=== PATIENT | female | born 1975 | race Caucasian/White ===

== ENCOUNTER 2019-09-15 14:42 | Observation (INO) ==
[2019-09-15] MEDS ORDERED: SODIUM CHLORIDE 0.9% 1000ML 1,000 ML IV SCH (14:45)
[2019-09-15] MEDS ORDERED: OPTIRAY 320 125ml IV PRN (14:50)
--- NOTE | 2019-09-15 14:55 | CT Scan Report ---
CT head/brain wo con CLINICAL HISTORY: 44 years-old Female presenting with Stroke evaluation, slurred speech. TECHNIQUE: Multidetector CT imaging of the head was performed without the use of intravenous contrast . IV contrast: None. One or more dose lowering techniques were used consistent with the principles of ALARA (as low as reasonably achievable), including automatic exposure control, mA or kV adjustment t o individual patient size, and/or use of iterative reconstruction. COMPARISON: None. CT DOSE (mGy.cm): The estimated cumulative dose is 773.57 mGy.cm. FINDINGS: Progressive Assembler And Fitter topogram: The patient is edentulous. Ventricles and sulci normal in size. No hemorrhage. Brain parenchyma normal in appearance with preser alberto san-white differentiation. No acute territorial infarct. No mass effect or midline shift. No ext ra-axial fluid collection. Paranasal sinuses and mastoid air cells clear. Calvarium intact. IMPRESSION: 1. No acute intracranial abnormality. Electronically signed by: Harley Diallo M.D. 09/15/2019 2:54 PM
--- NOTE | 2019-09-15 15:21 | CT Scan Report ---
CT angio head w con CLINICAL HISTORY: 44 years-old Female presenting with weakness, temporal pressure, neck pain. TECHNIQUE: Multidetector CT angiography of the head was performed after the administration of intrave nous contrast. 3-D volumetric and/or maximum intensity projection (MIP) images were subsequently amie nstructed for review. IV contrast: Optiray 320. One or more dose lowering techniques were used consis tent with the principles of ALARA (as low as reasonably achievable), including automatic exposure con trol, mA or kV adjustment to individual patient size, and/or use of iterative reconstruction. COMPARISON: None. CT DOSE (mGy.cm): The estimated cumulative dose is 903.93. FINDINGS: Tow Motor Driver topogram: Unremarkable. Anterior circulation: Atherosclerosis of the cavernous segments of the internal carotid arteries. Int racranial portions of the internal carotid arteries patent to the level of the termini. Anterior cere bral arteries patent. Middle cerebral arteries patent. Anterior communicating artery patent. Posterior circulation: Left dominant vertebral artery. Intradural portions of the vertebral arteries patent. Posterior inferior cerebellar arteries patent. Basilar artery patent. Anterior inferior cereb ellar arteries poorly visualized. Superior cerebellar arteries patent. Posterior cerebral arteries pa tent. Posterior communicating arteries patent. Dural venous sinuses: Patent. Other: Allowing for the phase of contrast, brain parenchyma within normal limits. Calvarium intact. IMPRESSION: 1. No evidence of aneurysm, focal vessel occlusion, or significant stenosis of the intracranial ambrocio audrey. Electronically signed by: Harley Diallo M.D. 09/15/2019 3:20 PM
--- NOTE | 2019-09-15 15:26 | CT Scan Report ---
CT angio neck with con CLINICAL HISTORY: 44 years-old Female presenting with weakness. TECHNIQUE: Multidetector CT angiography of the neck was performed after the administration of intrave nous contrast. 3-D volumetric and/or maximum intensity projection (MIP) images were subsequently amie nstructed for review. IV contrast: Optiray 320. One or more dose lowering techniques were used consis tent with the principles of ALARA (as low as reasonably achievable), including automatic exposure con trol, mA or kV adjustment to individual patient size, and/or use of iterative reconstruction. Stenosi s measurements were based on NASCET-like criteria (distal lumen diameter as the denominator for steno sis measurement). COMPARISON: None. CT DOSE (mGy.cm): The estimated cumulative dose is 903.93 mGy.cm. FINDINGS: Staff Rn topogram: Unremarkable. Image quality is degraded by patient body habitus, which moderately limits diagnostic sensitivity the exam. Aortic arch: Normal three-vessel aortic arch with patent origins of the branch vessels. Innominate artery: Patent. Right subclavian artery: Patent. Right common carotid artery: Patent. Right internal and external carotid arteries: Right carotid bifurcation patent. Right internal and ex ternal carotid arteries widely patent. Left common carotid artery: Patent. Left internal and external carotid arteries: Left carotid bifurcation patent. Left internal and exter nal carotid arteries widely patent. Left subclavian artery: Patent. Vertebral arteries: Left dominant vertebral artery. Origins and courses of the bilateral vertebral ar teries patent. Other: Limited intracranial evaluation within normal limits. Soft tissues of the neck normal allowing for the phase of contrast. Normal cervical spine. Lung apices clear. IMPRESSION: Image quality is degraded by patient body habitus, which moderately limits diagnostic sensitivity the exam. 1. No gross evidence of dissection, focal vessel occlusion, or significant stenosis of the cervical arteries. Electronically signed by: Harley Diallo M.D. 09/15/2019 3:25 PM
--- NOTE | 2019-09-15 15:27 | XRay Report ---
XR chest 1V portable CLINICAL HISTORY: 44 years-old Female presenting with CVA. TECHNIQUE: Portable upright AP view of the chest was obtained. COMPARISON: None. FINDINGS: Apparent cardiac silhouette enlargement likely due to body habitus and AP technique. Pulmonary vascul ar prominence. No focal opacity. No large effusion or pneumothorax. Osseous structures normal. Upper abdomen normal. IMPRESSION: 1. Volume overload may be present. Evaluation degraded by body habitus. No other convincing evidence of acute cardiopulmonary disease. Electronically signed by: Harley Diallo M.D. 09/15/2019 3:26 PM
[2019-09-15 15:28] LABS: Basophils # (auto) 0.03 K/uL (0-0.2); Basophils % (auto) 0.3 %; Eosinophils # (auto) 0.12 K/uL (0-0.5); Eosinophils % (auto) 1.4 %; Hematocrit (blood only) 35.3 % (37-47); Hemoglobin 11.6 g/dL (12.0-16.0); Immature Granulocytes # (auto) 0.03 K/uL (0.00-0.02); Immature Granulocytes % (auto) 0.3 %; Lymphocytes # (auto) 1.82 K/uL (1.2-3.4); Lymphocytes % (auto) 20.9 %; Mean Corpuscular Hemoglobin 27.5 pg (25-34); Mean Corpuscular Hgb Conc 32.9 g/dL (32-36); Mean Corpuscular Volume 83.6 fL (80-100); Mean Platelet Volume 9.3 fL (7.4-10.4); Monocytes # (auto) 0.66 K/uL (0.11-0.59); Monocytes % (auto) 7.6 %; Neutrophils # (auto) 6.04 K/uL (1.4-6.5); Neutrophils % (auto) 69.5 %; Platelet Count 183 K/uL (130-400); RDW Standard Deviation 48.6 fL (36.4-46.3); Red Blood Count 4.22 M/uL (4.2-5.4)
[2019-09-15 15:39] LABS: Partial Thromboplastin Ratio 1.1; Partial Thromboplastin Time 30.9 Seconds (21.0-31.0); Prothrombin Time 10.6 Seconds (9.0-12.0)
--- NOTE | 2019-09-15 15:40 | Emergency Department Note ---
Entered by Nieves Stephens acting as a scribe for History of Present Illness General Chief complaint: Stroke Alert Source: patient History of Present Illness Provider complaint: stroke symptoms Onset (ago): minute(s) 30 Location: head Radiation: non-radiation Pain Consistency: + constant Quality: + other (numbness and weakness) Associated symptoms: + denies other symptoms The patient is a 44 y/o female who presents to the emergency department for evaluation of stroke like symptoms that began prior to arrival. The EMS notes t he patient was getting an iron infusion at the [facility] in [facility] when she began having left sided numbness and weakness as well as slurred speech which the staff noticed. EMS states that the patient has a history of HTN, anemia and a stroke one month ago at [place] that was milder than the current symptoms. They report that the RACE scale was 1 for the patient. Last known well was 1410. She notes that she had some facial droop following the prior stroke. The patient denies any other symptoms Home Medications Home Medications Medication Instructions Recorded Confirmed Type Iron-Vitamin C 65/125mg 1 tab PO BID 09/15/19 09/15/19 History albuterol sulfate 2.5 mg INHALATION Q4 PRN 09/15/19 09/15/19 History albuterol sulfate [Ventolin HFA] 2 puff INHALATION Q4 PRN 09/15/19 09/15/19 History aspirin [Aspir-81] 81 mg PO DAILY 09/15/19 09/15/19 History atenolol 50 mg PO HS 09/15/19 09/15/19 History baclofen 10 mg PO TID PRN 09/15/19 09/15/19 History benzonatate 100 mg PO TID PRN 09/15/19 09/15/19 History cetirizine 10 mg PO DAILY PRN 09/15/19 09/15/19 History clopidogrel [Plavix] 75 mg PO DAILY 09/15/19 09/15/19 History diclofenac sodium 50 mg PO BID PRN 09/15/19 09/15/19 History diclofenac sodium [Voltaren] 0 g TOPICAL Q6 PRN 09/15/19 09/15/19 History dicyclomine 10 mg PO TID PRN 09/15/19 09/15/19 History fluticasone propionate [Flonase 2 spray INTRANASAL BID 09/15/19 09/15/19 History Allergy Relief] gabapentin [Neurontin] 300 mg PO QID 09/15/19 09/15/19 History hydroxyzine HCl 30 - 40 mg PO HS PRN 09/15/19 09/15/19 History lisinopril 10 mg PO DAILY 09/15/19 09/15/19 History magnesium oxide [MagOx] 400 mg PO DAILY 09/15/19 09/15/19 History melatonin 3 mg PO HS PRN 09/15/19 09/15/19 History methocarbamol 500 mg PO TID PRN 09/15/19 09/15/19 History naproxen 375 mg PO BID 09/15/19 09/15/19 History omega-3 acid ethyl esters 1 cap PO BID 09/15/19 09/15/19 History omeprazole 20 mg PO BID 09/15/19 09/15/19 History ondansetron HCl [Zofran] 4 mg PO TID PRN 09/15/19 09/15/19 History ranitidine HCl [Zantac] 150 mg PO BID 09/15/19 09/15/19 History risperidone 2 mg PO BID 09/15/19 09/15/19 History senna 8.6 mg PO BID PRN 09/15/19 09/15/19 History sertraline 100 mg PO DAILY 09/15/19 09/15/19 History sucralfate [Carafate] 1 g PO ACHS 09/15/19 09/15/19 History topiramate [Topamax] 50 mg PO BID 09/15/19 09/15/19 History trazodone 375 mg PO HS 09/15/19 09/15/19 History Allergies Allergy/AdvReac Type Severity Reaction Status Date / Time aspirin Allergy Hives Verified 09/15/19 16:25 codeine Allergy Hives Verified 09/15/19 16:25 ketorolac [From Toradol] Allergy Hives Verified 09/15/19 16:24 latex Allergy Hives Verified 09/15/19 16:25 Penicillins Allergy Hives Verified 09/15/19 16:24 promethazine [From Phenergan] Allergy Hives Verified 09/15/19 16:24 tramadol Allergy Hives Verified 09/15/19 16:24 Past Med/Surg History Medical History (Updated 09/15/19 @ 16:26 by Richmond Cueva MD) Anemia Bipolar depression Gastritis GI bleed History of CVA (cerebrovascular accident) Hypertension Morbid obesity Stroke Surgical History No pertinent past surgical history Family History (Updated 09/15/19 @ 16:19 by Richmond Cueva MD) Mother Stroke Social History (Updated 09/15/19 @ 16:18 by Richmond Cueva MD) Preferred Language: Cameroonian Communication Ability: Effective Safety Consultant Required: No Beliefs That Will Affect Care: None Current Living Situation: Family Current Living Situation Comment: with sister Other Information That Helps Us Care for You: No Feels Safe at Home: Yes Safety Concerns: Feels Safe At This Time Smoking Status: Former smoker Hx Alcohol Use: No Hx Substance Use: No Review of Systems See HPI for pertinent positives & negatives. and A total of 10 systems reviewed and were otherwise negative Physical Exam Vital Signs Vital Signs - 24 hr 09/15/19 14:30 09/15/19 14:34 09/15/19 15:45 Temperature 37 C 37 C 37.0 C Temperature Source Oral Oral Pulse Rate 88 Pulse Rate [Right Finger] 80 80 Pulse Rate from SpO2 Sensor 75 Respiratory Rate 20 20 20 Respiratory Effort / Characteristics Non-Labored Spontaneous Non-Labored Spontaneous Blood Pressure 143/77 H 105/72 Blood Pressure [Left Arm] 128/75 128/75 Blood Pressure Mean 99 83 Blood Pressure Mean [Left Arm] 92 92 Blood Pressure Position Lying Blood Pressure Position [Left Arm] Sitting Sitting Pulse Oximetry 100 100 100 Oxygen Delivery Method Room Air Room Air Room Air Sepsis Recent Fever Within 48 Hours No Sepsis Action Taken by Nursing No Action Required 09/15/19 15:47 Temperature Temperature Source Pulse Rate Pulse Rate [Right Finger] Pulse Rate from SpO2 Sensor 97 H Respiratory Rate 20 Respiratory Effort / Characteristics Blood Pressure 105/72 Blood Pressure [Left Arm] Blood Pressure Mean 76 Blood Pressure Mean [Left Arm] Blood Pressure Position Blood Pressure Position [Left Arm] Pulse Oximetry 98 Oxygen Delivery Method Room Air Sepsis Recent Fever Within 48 Hours Sepsis Action Taken by Nursing GENERAL: Patient is awake alert in no acute distress patient is resting comfortably and showing no signs of anxiety EYES: The conjunctivae are clear. The pupils are round and reactive. EARS, NOSE, MOUTH AND THROAT: The nose is without any evidence of any deformity. Mucous membranes are moist tongue is midline NECK: The neck is nontender and supple. RESPIRATORY: Normal respiratory effort is noted there is no evidence of wheezing rhonchi or rales CARDIOVASCULAR: Regular rate and rhythm noted there no murmurs rubs or gallops normal S1 normal S2 GASTROINTESTINAL: The abdomen is soft. Bowel sounds are present in all quadrants. Abdomen is nontender MUSCULOSKELETAL/EXTREMITIES: There is no evidence of gross deformity full range of motion is noted in the hips and shoulders SKIN: There is no obvious evidence of any rash. Pedal edema was noted bilaterally. NEUROLOGIC: Patient is awake alert and oriented x3. There is a left facial droop noted with forehead sparing. [employer] strength is diminished in the left hand compared to the right. There is no drift in the upper extremity's. Patient is unable to hold the left leg off the bed for greater than 5 seconds. Course Course 1442: Past medical records reviewed. The patient was evaluated in room B01. A complete history and physical exam was performed. 1500: I spoke to Dr. Rosalinda Wheatley. 1540: [facility] Who will evaluate for further management. Administered Medications Sodium Chloride (Nss 1000ml) 1,000 mls @ 60 mls/hr IV .[id number] MARYBEL Stop: 10/15/19 17:59 Last Admin: 09/15/19 17:40 Dose: 60 mls/hr Documented by: [id number] Discontinued Medications Sodium Chloride (Nss 1000ml) 1,000 mls @ 50 mls/hr IV .Q20H MARYBEL Stop: 10/15/19 14:44 Last Infusion: 09/15/19 17:25 Dose: 0 mls/hr Documented by: [id number] Admin: 09/15/19 15:39 Dose: 50 mls/hr Documented by: [id number] Ioversol (Optiray 320 125ml) 108 ml IV ONCE PRN PRN Reason: Interaction Checking Stop: 09/19/19 14:49 Last Admin: 09/15/19 14:51 Dose: 108 ml Documented by: [id number] Critical Care Time Critical Care Time: Yes Total Critical Care Time: 60 I have personally spent 60 minutes of critical care time in the direct management of this patient. This includes bedside care, interpretation of diagnostic studies, and testing, discussion with consultants, patient, and family members, and other required patient management activities. This 60 minutes is in excess of all separately billable procedures. Medical Decision Making Differential Diagnosis Differential includes acute coronary syndrome, myocardial infarction, CVA, TIA, anemia, infection, pneumonia, UTI, pyelonephritis, poor nutrition, dehydration, electrolyte disturbance,hypoglycemia. Medical Records Attestation: I reviewed the patient's medical records. Home Medications Current Medication List: was personally reviewed by me Laboratory Data Attestation: I reviewed the patient's lab results. Result diagrams: 09/15/19 15:11 09/15/19 15:11 Lab Results 09/15/19 09/15/19 09/15/19 Range/Units 15:11 15:11 15:11 WBC 8.70 (4.8-10.8) K/uL RBC 4.22 (4.2-5.4) M/uL Hgb 11.6 L (12.0-16.0) g/dL Hct 35.3 L (37-47) % MCV 83.6 (80-100) fL MCH 27.5 (25-34) pg MCHC 32.9 (32-36) g/dL RDW Std Deviation 48.6 H (36.4-46.3) fL RDW Coeff of Sylvia 16.0 H (11.5-14.5) % Plt Count 183 (130-400) K/uL MPV 9.3 (7.4-10.4) fL Immature Gran % (Auto) 0.3 % Neut % (Auto) 69.5 % Lymph % (Auto) 20.9 % Dickinson % (Auto) 7.6 % Eos % (Auto) 1.4 % Baso % (Auto) 0.3 % Immature Gran # (Auto) 0.03 H (0.00-0.02) K/uL Neut # (Auto) 6.04 (1.4-6.5) K/uL Lymph # (Auto) 1.82 (1.2-3.4) K/uL Dickinson # (Auto) 0.66 H (0.11-0.59) K/uL Eos # (Auto) 0.12 (0-0.5) K/uL Baso # (Auto) 0.03 (0-0.2) K/uL PT 10.6 (9.0-12.0) Seconds INR 1.0 (0.9-1.1) APTT 30.9 (21.0-31.0) Seconds PTT Ratio 1.1 Sodium 137 (136-145) mmol/L Potassium 3.9 (3.5-5.1) mmol/L Chloride 108 H (98-107) mmol/L Carbon Dioxide 22 (21-32) mmol/L Anion Gap 7.0 (3-11) BUN 12 (7-18) mg/dl Creatinine 0.88 (0.6-1.2) mg/dl Est Cr Clr Drug Dosing 151.1 ml/min Est GFR ( Amer) 93.3 Est GFR (Non-Af Amer) 80.5 BUN/Creatinine Ratio 13.8 (10-20) Glucose 95 (70-99) mg/dl POC Glucose (70-99) Calcium 8.4 L (8.5-10.1) mg/dl Magnesium 2.0 (1.8-2.4) mg/dl Total Bilirubin 0.3 (0.2-1) mg/dl AST 7 L (15-37) U/L ALT 11 L (12-78) U/L Alkaline Phosphatase 88 (45-117) U/L Troponin I < 0.015 (0-0.045) ng/ml Total Protein 6.8 (6.4-8.2) gm/dl Albumin 2.9 L (3.4-5.0) gm/dl Globulin 3.9 (2.5-4.0) gm/dl Albumin/Globulin Ratio 0.7 L (0.9-2) HCG, Qual (Negative) Blood Type Antibody Screen 09/15/19 09/15/19 09/15/19 Range/Units 15:11 15:17 15:24 WBC (4.8-10.8) K/uL RBC (4.2-5.4) M/uL Hgb (12.0-16.0) g/dL Hct (37-47) % MCV (80-100) fL MCH (25-34) pg MCHC (32-36) g/dL RDW Std Deviation (36.4-46.3) fL RDW Coeff of Sylvia (11.5-14.5) % Plt Count (130-400) K/uL MPV (7.4-10.4) fL Immature Gran % (Auto) % Neut % (Auto) % Lymph % (Auto) % Dickinson % (Auto) % Eos % (Auto) % Baso % (Auto) % Immature Gran # (Auto) (0.00-0.02) K/uL Neut # (Auto) (1.4-6.5) K/uL Lymph # (Auto) (1.2-3.4) K/uL Dickinson # (Auto) (0.11-0.59) K/uL Eos # (Auto) (0-0.5) K/uL Baso # (Auto) (0-0.2) K/uL PT (9.0-12.0) Seconds INR (0.9-1.1) APTT (21.0-31.0) Seconds PTT Ratio Sodium (136-145) mmol/L Potassium (3.5-5.1) mmol/L Chloride (98-107) mmol/L Carbon Dioxide (21-32) mmol/L Anion Gap (3-11) BUN (7-18) mg/dl Creatinine (0.6-1.2) mg/dl Est Cr Clr Drug Dosing ml/min Est GFR ( Amer) Est GFR (Non-Af Amer) BUN/Creatinine Ratio (10-20) Glucose (70-99) mg/dl POC Glucose 85 (70-99) Calcium (8.5-10.1) mg/dl Magnesium (1.8-2.4) mg/dl Total Bilirubin (0.2-1) mg/dl AST (15-37) U/L ALT (12-78) U/L Alkaline Phosphatase (45-117) U/L Troponin I (0-0.045) ng/ml Total Protein (6.4-8.2) gm/dl Albumin (3.4-5.0) gm/dl Globulin (2.5-4.0) gm/dl Albumin/Globulin Ratio (0.9-2) HCG, Qual Negative (Negative) Blood Type O Positive Antibody Screen NEGATIVE Imaging Data Radiologist's Impression: Radiology results as stated below per my review and the radiologist's interpretation: CT head/brain wo con CLINICAL HISTORY: 44 years-old Female presenting with Stroke evaluation, slurred speech. TECHNIQUE: Multidetector CT imaging of the head was performed without the use of intravenous contrast. IV contrast: None. One or more dose lowering techniques were used consistent with the principles of ALARA (as low as reasonably achievable), including automatic exposure control, mA or kV adjustment to individual patient size, and/or use of iterative reconstruction. COMPARISON: None. CT DOSE (mGy.cm): The estimated cumulative dose is 773.57 mGy.cm. FINDINGS: Tests Superintendent topogram: The patient is edentulous. Ventricles and sulci normal in size. No hemorrhage. Brain parenchyma normal in appearance with preserved san-white differentiation. No acute territorial infarct. No mass effect or midline shift. No extra-axial fluid collection. Paranasal sinuses and mastoid air cells clear. Calvarium intact. IMPRESSION: 1. No acute intracranial abnormality. Electronically signed by: Harley Diallo M.D. 09/15/2019 2:54 PM XR chest 1V portable CLINICAL HISTORY: 44 years-old Female presenting with CVA. TECHNIQUE: Portable upright AP view of the chest was obtained. COMPARISON: None. FINDINGS: Apparent cardiac silhouette enlargement likely due to body habitus and AP technique. Pulmonary vascular prominence. No focal opacity. No large effusion or pneumothorax. Osseous structures normal. Upper abdomen normal. IMPRESSION: 1. Volume overload may be present. Evaluation degraded by body habitus. No other convincing evidence of acute cardiopulmonary disease. Electronically signed by: Harley Diallo M.D. 09/15/2019 3:[address] angio head w con CLINICAL HISTORY: 44 years-old Female presenting with weakness, temporal pressure, neck pain. TECHNIQUE: Multidetector CT angiography of the head was performed after the administration of intravenous contrast. 3-D volumetric and/or maximum intensity projection (MIP) images were subsequently reconstructed for review. IV contrast: Optiray 320. One or more dose lowering techniques were used consistent with the principles of ALARA (as low as reasonably achievable), including automatic exposure control, mA or kV adjustment to individual patient size, and/or use of iterative reconstruction. COMPARISON: None. CT DOSE (mGy.cm): The estimated cumulative dose is 903.93. FINDINGS: Tests Superintendent topogram: Unremarkable. Anterior circulation: Atherosclerosis of the cavernous segments of the internal carotid arteries. Intracranial portions of the internal carotid arteries patent to the level of the termini. Anterior cerebral arteries patent. Middle cerebral arteries patent. Anterior communicating artery patent. Posterior circulation: Left dominant vertebral artery. Intradural portions of the vertebral arteries patent. Posterior inferior cerebellar arteries patent. Basilar artery patent. Anterior inferior cerebellar arteries poorly visualized. Superior cerebellar arteries patent. Posterior cerebral arteries patent. Posterior communicating arteries patent. Dural venous sinuses: Patent. Other: Allowing for the phase of contrast, brain parenchyma within normal limits. Calvarium intact. IMPRESSION: 1. No evidence of aneurysm, focal vessel occlusion, or significant stenosis of the intracranial arteries. Electronically signed by: Harley Diallo M.D. 09/15/2019 3:[address] angio neck with con CLINICAL HISTORY: 44 years-old Female presenting with weakness. TECHNIQUE: Multidetector CT angiography of the neck was performed after the administration of intravenous contrast. 3-D volumetric and/or maximum intensity projection (MIP) images were subsequently reconstructed for review. IV contrast: Optiray 320. One or more dose lowering techniques were used consistent with the principles of ALARA (as low as reasonably achievable), including automatic exposure control, mA or kV adjustment to individual patient size, and/or use of iterative reconstruction. Stenosis measurements were based on NASCET-like criteria (distal lumen diameter as the denominator for stenosis measurement). COMPARISON: None. CT DOSE (mGy.cm): The estimated cumulative dose is 903.93 mGy.cm. FINDINGS: Tests Superintendent topogram: Unremarkable. Image quality is degraded by patient body habitus, which moderately limits diagnostic sensitivity the exam. Aortic arch: Normal three-vessel aortic arch with patent origins of the branch vessels. Innominate artery: Patent. Right subclavian artery: Patent. Right common carotid artery: Patent. Right internal and external carotid arteries: Right carotid bifurcation patent. Right internal and external carotid arteries widely patent. Left common carotid artery: Patent. Left internal and external carotid arteries: Left carotid bifurcation patent. Left internal and external carotid arteries widely patent. Left subclavian artery: Patent. Vertebral arteries: Left dominant vertebral artery. Origins and courses of the bilateral vertebral arteries patent. Other: Limited intracranial evaluation within normal limits. Soft tissues of the neck normal allowing for the phase of contrast. Normal cervical spine. Lung apices clear. IMPRESSION: Image quality is degraded by patient body habitus, which moderately limits diagnostic sensitivity the exam. 1. No gross evidence of dissection, focal vessel occlusion, or significant stenosis of the cervical arteries. Electronically signed by: Harley Diallo M.D. 09/15/2019 3:25 PM ECG Data Attestation: I personally reviewed and interpreted this ECG as follows: Indication: + weakness Rate (beats per minute): 83 Rhythm: + normal sinus ECG ST segments: no ST depression and no ST elevation ECG Findings: no PACs and no PVCs Comparison ECG Date: no prior available Blood Pressure Blood Pressure Findings: Normal blood pressure MDM Narrative The patient is a 44-year-old female who presented to the emergency department for an evaluation of left-sided weakness. The patient has a history of a recent stroke 1 month ago. The patient states she was treated at [facility] for a recent stroke. Patient denies that she had TPA at that time. She also states that they did not find the cause of her stroke. Old records are still pending at this time. The patient was made a stroke alert prior to arrival. I discussed her case with the [facility] stroke neurolog ist. The patient was evaluated by the stroke neurologist. It appears the patient had some facial droop after the stroke but the left-sided weakness appears to be new. I discussed the patient's laboratory and radiographic studies with her. No acute findings were noted on CT the head and her CT an giography appears normal. There does not appear to be any reason for transfer at this time and the patient would not be a candidate for TPA given her recent stroke only a month ago. I discussed this case with the [facility] hospital[facility] group. They have agreed to evaluate the patient in the emergency department for further management disposition. The patient was agreeable to evaluation by the hospitalist. Impression & Plan Weakness, Acute CVA (cerebrovascular accident) Discharge Plan Visit Data *Final* Discharge Date/Time: 09/15/19 16:59 Chief Complaint: Stroke Alert ED Provider: Rojelio Valerio Discharge Problem: Weakness, Acute CVA (cerebrovascular accident) Patient Disposition: Admitted As Inpatient Discharge Instructions Interventions: ED Discharge Assessment Last Done: 09/15/19 16:59 The scribe's documentation has been prepared under my direction and personally reviewed by me in its entirety. I confirm that the note above accurately reflects all work, treatment, procedures, and medical decision making performed by me.
[2019-09-15 15:43] LABS: Pregnancy Test, Serum Negative (Negative)
[2019-09-15 15:44] LABS: Alanine Aminotransferase 11 U/L (12-78); Albumin Level 2.9 gm/dl (3.4-5.0); Aspartate Aminotransferase 7 U/L (15-37); BUN Creatinine Ratio 13.8 (10-20); Blood Urea Nitrogen 12 mg/dl (7-18); Calcium 8.4 mg/dl (8.5-10.1); Carbon Dioxide 22 mmol/L (21-32); Chloride 108 mmol/L (98-107); Creatinine Clr Calc Pharmacy 151.1 ml/min; Est GFR (African American) 93.3; Est GFR (Non-African American) 80.5; Glucose 95 mg/dl (70-99); Potassium 3.9 mmol/L (3.5-5.1); Sodium 137 mmol/L (136-145)
[2019-09-15 15:49] LABS: Albumin Globulin Ratio 0.7 (0.9-2); Alkaline Phosphatase 88 U/L (45-117); Bilirubin,Total 0.3 mg/dl (0.2-1); Globulin 3.9 gm/dl (2.5-4.0); Total Protein 6.8 gm/dl (6.4-8.2); Troponin I < 0.015 ng/ml (0-0.045)
--- NOTE | 2019-09-15 15:52 | History & Physical Report ---
Date of Service September 15, 2019 Assessment & Plan (1) TIA (transient ischemic attack): Follow TIA protocol; her symptoms have started to improve. She has history of CVA 1 month back, we will try to get records from previous hospitalization. Consult neurology. Further plan per neurology. Neurochecks per protocol. Consult PT OT. Consult speech therapy. Swallowing evaluation. Case management for discharge plans. Present on Admission?: Yes (2) GERD (gastroesophageal reflux disease): Continue home medication. Present on Admission?: Yes (3) Bipolar depression: Continue home medications. Present on Admission?: Yes (4) Hypertension: Continue with home medications. Present on Admission?: Yes (5) Anemia: Patient was receiving IV iron today at [facility] Hematology is following. Present on Admission?: Yes (6) Morbid obesity: Add subcu heparin for DVT prophylaxis. Present on Admission?: Yes (7) History of CVA (cerebrovascular accident): Get old records from previous hospitalization. Present on Admission?: Yes (8) Weakness: Consult PT OT. Present on Admission?: Yes (9) DVT prophylaxis: Add subcu heparin for DVT prophylaxis. History of Present Illness Chief Complaint: Left-sided tingling numbness and weakness Primary Care Provider: Eulalio Barry The patient is a 44 y/o female who presents to the emergency department for evaluation of stroke like symptoms that began prior to arrival. The EMS notes the patient was getting an iron infusion at the [facility] center in [facility] when she began having left sided numbness and weakness as well as slurred speech which the staff noticed. EMS states that the patient has a history of HTN, anemia and a stroke one month ago at [facility] that was milder than the current symptoms. They report that the RACE scale was 1 for the patient. Last known well was 1410. She notes that she had some facial droop following the prior stroke. The patient denies any other symptoms. Symptoms have started to improve. The CT head and CT angiogram is within normal limits. She will be admitted under observation to rule out TIA. Allergies Allergy/AdvReac Type Severity Reaction Status Date / Time aspirin Allergy Hives Verified 09/15/19 16:25 codeine Allergy Hives Verified 09/15/19 16:25 ketorolac [From Toradol] Allergy Hives Verified 09/15/19 16:24 latex Allergy Hives Verified 09/15/19 16:25 Penicillins Allergy Hives Verified 09/15/19 16:24 promethazine [From Phenergan] Allergy Hives Verified 09/15/19 16:24 tramadol Allergy Hives Verified 09/15/19 16:24 Past Med/Surg History Medical History (Updated 09/15/19 @ 16:26 by Richmond Cueva MD) Anemia Bipolar depression Gastritis GI bleed History of CVA (cerebrovascular accident) Hypertension Morbid obesity Stroke Surgical History No pertinent past surgical history Family History (Updated 09/15/19 @ 16:19 by Richmond Cueva MD) Mother Stroke Social History (Updated 09/15/19 @ 16:18 by Richmond Cueva MD) Preferred Language: Cambodian Smoking Status: Never smoker Hx Substance Use: No Review of Systems Review of Systems: All systems reviewed & are unremarkable except as noted in HPI & below Psychiatric: + depression and + anxiety Physical Exam Physical Exam: GENERAL : No acute distress Morbidly obese female EYES: No icterus, gaze conjugate NOSE: No evidence of epistaxis MOUTH: No lesions or candidiasis, mucosa moist NECK: Supple LUNGS: CTA B/L, no wheezes, rales or rhonchi HEART: Regular, rate controlled ABDOMEN: Soft, NT, ND, BS Present EXTREMITIES: No LE edema, pedal pulses intact NEURO: A&OX3 Neurologic: CN's II-XI intact bilaterally and awake Cranial Nerves: sense of smell intact, PERRL, normal accommodation, EOM intact bilaterally, normal facial strength, tongue midline, normal gag reflex, normal hearing, able to rotate head bilaterally, able to elevate shoulders bilaterally, no nystagmus and symmetric palate elevation Results & Data Vital Signs (Past 12 Hours) Vital Signs Temp Pulse Pulse Resp BP BP Pulse Ox 09/15/19 15:45 98.6 F 20 105/72 100 09/15/19 14:34 98.6 F 80 20 128/75 100 09/15/19 14:30 98.6 F 88 80 20 143/77 H 128/75 100 Laboratory Results 09/15/19 15:11 09/15/19 15:[address] angio head w con CLINICAL HISTORY: 44 years-old Female presenting with weakness, temporal pressure, neck pain. TECHNIQUE: Multidetector CT angiography of the head was performed after the administration of intravenous contrast. 3-D volumetric and/or maximum intensity projection (MIP) images were subsequently reconstructed for review. IV contrast: Optiray 320. One or more dose lowering techniques were used consistent with the principles of ALARA (as low as reasonably achievable), including automatic exposure control, mA or kV adjustment to individual patient size, and/or use of iterative reconstruction. COMPARISON: None. CT DOSE (mGy.cm): The estimated cumulative dose is 903.93. FINDINGS: Stone Rougher topogram: Unremarkable. Anterior circulation: Atherosclerosis of the cavernous segments of the internal carotid arteries. Intracranial portions of the internal carotid arteries patent to the level of the termini. Anterior cerebral arteries patent. Middle cerebral arteries patent. Anterior communicating artery patent. Posterior circulation: Left dominant vertebral artery. Intradural portions of the vertebral arteries patent. Posterior inferior cerebellar arteries patent. Basilar artery patent. Anterior inferior cerebellar arteries poorly visualized. Superior cerebellar arteries patent. Posterior cerebral arteries patent. Posterior communicating arteries patent. Dural venous sinuses: Patent. Other: Allowing for the phase of contrast, brain parenchyma within normal limits. Calvarium intact. IMPRESSION: 1. No evidence of aneurysm, focal vessel occlusion, or significant stenosis of the intracranial arteries. CT head/brain wo con CLINICAL HISTORY: 44 years-old Female presenting with Stroke evaluation, slurred speech. TECHNIQUE: Multidetector CT imaging of the head was performed without the use of intravenous contrast. IV contrast: None. One or more dose lowering techniques were used consistent with the principles of ALARA (as low as reasonably achievable), including automatic exposure control, mA or kV adjustment to individual patient size, and/or use of iterative reconstruction. COMPARISON: None. CT DOSE (mGy.cm): The estimated cumulative dose is 773.57 mGy.cm. FINDINGS: Stone Rougher topogram: The patient is edentulous. Ventricles and sulci normal in size. No hemorrhage. Brain parenchyma normal in appearance with preserved san-white differentiation. No acute territorial infarct. No mass effect or midline shift. No extra-axial fluid collection. Paranasal sinuses and mastoid air cells clear. Calvarium intact. IMPRESSION: 1. No acute intracranial abnormality. Code Status & VTE Plan Code Status full code PG Care Time/CCT Total # of Minutes Spent Total Time Spent with Patient: Total time spent is greater than 50% in coordination of care (as documented) at patient's floor/unit and/or counseling patient:
[2019-09-15] MEDS ORDERED: PHARMACIST DISCHARGE MED REC CONSULT PRN (17:24)
[2019-09-15] MEDS: SODIUM CHLORIDE 0.9% 1000ML 1,000 ML IV SCH (17:40)
[2019-09-15] MEDS: HEPARIN SOD 5,000 UNIT/0.5 ML VIAL SQ SCH (21:40)
[2019-09-16] MEDS: HEPARIN SOD 5,000 UNIT/0.5 ML VIAL SQ SCH ×2 (05:41→13:01)
[2019-09-16 06:37] LABS: Basophils # (auto) 0.01 K/uL (0-0.2); Basophils % (auto) 0.1 %; Eosinophils # (auto) 0.12 K/uL (0-0.5); Eosinophils % (auto) 1.7 %; Hematocrit (blood only) 35.4 % (37-47); Hemoglobin 11.9 g/dL (12.0-16.0); Immature Granulocytes # (auto) 0.03 K/uL (0.00-0.02); Immature Granulocytes % (auto) 0.4 %; Lymphocytes # (auto) 1.94 K/uL (1.2-3.4); Lymphocytes % (auto) 27.2 %; Mean Corpuscular Hemoglobin 27.9 pg (25-34); Mean Corpuscular Hgb Conc 33.6 g/dL (32-36); Mean Corpuscular Volume 82.9 fL (80-100); Mean Platelet Volume 9.1 fL (7.4-10.4); Monocytes # (auto) 0.52 K/uL (0.11-0.59); Monocytes % (auto) 7.3 %; Neutrophils # (auto) 4.51 K/uL (1.4-6.5); Neutrophils % (auto) 63.3 %; Platelet Count 170 K/uL (130-400); RDW Standard Deviation 48.9 fL (36.4-46.3); Red Blood Count 4.27 M/uL (4.2-5.4); White Blood Count 7.13 K/uL (4.8-10.8)
[2019-09-16 06:41] LABS: Estimated Average Glucose 114 mg/dl; Hemoglobin A1C 5.6 % (4.5-5.6)
[2019-09-16 07:10] LABS: BUN Creatinine Ratio 14.6 (10-20); Calcium 8.8 mg/dl (8.5-10.1); Creatinine Clr Calc Pharmacy 161.2 ml/min; Est GFR (African American) 98.7; Est GFR (Non-African American) 85.1
--- NOTE | 2019-09-16 09:05 | Medical Student Progress Note ---
Date of Service September 16, 2019 Assessment & Plan (1) Acute CVA (cerebrovascular accident): Pt 44 y/o F w/ PMHx of CVA, anemia, migraine, bipolar depression, and hypertension. Presented to ED 09/15 w/ left sided weakness/numbness. She lives in [place], [place]. ?CVA Patient had previous CVA in 06/2019 at [facility]. At that time, started on ASA and Plavix. Previous stroke similar to this episode- left sided weakness and numbness. FHx of stroke (mother and brother). CT head and CTA normal. -Records from [facility] requested -Neuro consulted -MRI ordered -Hypercoaguable panel ordered -Advance diet -Hold ASA given PMHx gastric ulcers -Continue 75 mg Plavix daily Gastric Ulcers Diagnosed w/ bleeding gastric ulcer 05/2019. -Hold ASA -Cont Pantoprazole 40 mg PO twice daily -Cont Ranitidine 150 mg PO twice daily -Cont Sucralfate 1 gm PO Hypertension Stable w/ last BP 134/60 -Continue atenolol 50 mg PO daily Bipolar Depression Diagnosed few years ago. Follows w/ psych closer to home. Recently increased dose of Risperidone 2 mg. Lip-smacking and some rigidity probably secondary risperidone. -Cont Risperidone 2 mg PO twice daily, consider lowering or discontinue on D/C -Cont Sertraline 100 mg daily -Cont Gabapentin 300 mg PO QID -Cont Topiramate 50 mg PO twice daily (pt unsure why she's on this, may be for migraine ppx) -Cont Trazodone 250 mg PO daily (for sleep) Chronic Back Pain -Cont Baclofen 10 mg PO three times a day PRN -Cont Diclofenac topical PRN Code: Full DVT Prophylaxis: Heparin sodium injection 5,000 units SQ Disposition: PCU/Telemetry Subjective Morenita Banegas is a 44 y/o F with a PMHx of CVA, hypertension, anemia, migrations, gastric ulcers and bipolar depression. She was admitted 09/15 afternoon with left sided weakness and numbness. Was at cancer center receiving iron infusion when noticed left sided numbness in leg which proceeded to left cheek then left upper extremity. Staff also noticed slurring of words. She was brought over to the ED. Today symptoms improved but still reports numbness on left foot, leg, and arms. Still has and notices some slurring. No fever, chills, SOB, CP, abdominal pain. Review of Systems Review of Systems: All systems reviewed & are unremarkable except as noted in HPI & below Physical Exam Constitutional: well developed, well nourished and + morbidly obese; no acute distress Eyes: PERRL, conjunctivae normal, anicteric sclerae ENMT: external ear and nose normal, oropharynx normal lip-smacking Respiratory: normal respiratory effort, lungs clear to auscultation Cardiovascular: RRR, no murmur, no edema Vessels: no carotid bruit Extremities: no edema Gastrointestinal (Abdomen): normal bowel sounds, soft, nontender, no hepatosplenomegaly Skin: no rashes, warm and dry Neurologic: CN's II-XI intact bilaterally Speech / Cognition: normal speech Motor/Sensory: + sensory deficit (decreased sensation on left lower leg and foot) Cranial Nerves: EOM intact bilaterally, normal facial strength, tongue midline and no nystagmus Psychiatric: A+Ox3, euthymic affect Results & Data Vital Signs (Past 12 Hours) Vital Signs Temp Pulse Pulse Resp BP Pulse Ox 09/16/19 07:40 36.9 C 74 18 111/91 96 09/16/19 07:17 81 09/16/19 03:05 36.9 C 93 H 20 137/96 97 09/16/19 00:00 86 09/15/19 23:35 36.7 C 84 18 123/70 96
[2019-09-16] MEDS ORDERED: ALBUTEROL HFA 8 GM INHALER INH PRN (09:45)
[2019-09-16] MEDS ORDERED: BACLOFEN 10 MG TAB PO PRN (09:45)
[2019-09-16] MEDS ORDERED: CETIRIZINE HCL 10 MG TABLET PO PRN (09:45)
[2019-09-16] MEDS ORDERED: ONDANSETRON 4 MG TAB PO PRN (09:45)
[2019-09-16] MEDS ORDERED: DICYCLOMINE HCL 10 MG CAP PO PRN (09:45)
[2019-09-16] MEDS ORDERED: ALBUTEROL 0.083% NEBU SOLN 3 ML VIAL INH PRN (09:45)
--- NOTE | 2019-09-16 09:54 | Neurology Consultation ---
Date of Consultation September 16, 2019 Assessment & Plan (1) TIA (transient ischemic attack): (2) History of CVA (cerebrovascular accident): (3) Bipolar depression: (4) Neuroleptic-induced tardive dyskinesia: This patient apparently had a right hemispheric stroke 2 months ago and was car ed for at [facility]. She was sent home on aspirin and Plavix. In addition she has some history of ulcer and iron deficiency with possible GI bleeding history. She saw all Dr. Betancur, hematology, but I do not have his notes. Apparently she was doing well except for some residual/slight left-sided weakness and facial droop when she had new left-sided dysesthesias weakness and slurred speech yesterday afternoon while getting an iron infusion. Today she is markedly better with no objective neurologic deficits, meningeal signs, or encephalopathy. She has some subjective dysesthesias/numbness in her distal left lower extremity. Certainly, she could have had an extension of her previous stroke or a TIA yesterday. In addition, with her history of migraines, and migrainous phenomenon as possible. Interestingly, CT angiography of the head neck were unremarkable and she has no cardiac problems. CT scan of the head did not show any obvious old stroke. She does have a history of hypertension and history of cigarette smoking in the past. On examination she has lip-smacking and some generalized rigidity consistent with extrapyramidal side effects/dyskinesia, which is likely secondary to Risperdal. This was increased about a month ago to the current dose. She takes this for bipolar disorder and it apparently helps. Recommendations: 1. Obtain MRI of the brain to evaluate for new stroke, the old stroke she had 2 months ago and the amount of chronic cerebral vascular disease she might have. 2. Discontinue aspirin and consider staying on clopidogrel 75 milligrams a day alone (there would be no reason to be on both especially given her GI/iron issues), depending on the MRI results. 3. Obtain records from [facility]. 4. Increase activity as able. Consider physical and occupational therapy. 5. Lower or hopefully discontinue Risperdal to eliminate the extraforaminal side effects and dyskinetic movements. Unfortunately, I cannot make this call and we may have to involve her psychiatrist for this. 6. Control blood pressure as you are doing , aiming for a mean arterial pressure of 95-100. 7. There is no need for a lipid lowering agent in this patient given her parameters Overall, I spent a total of 100 minutes with this case including review of records, review of CT films, direct evaluation the patient at bedside, and discussion of the case with the patient at bedside, her RN, and Dr. Diaz, including differential diagnosis and treatment options. History of Present Illness Reason for Consultation: A 44-year-old, who I was asked to see at the request of Dr. french, for neurologic consultation regarding TIA. Requesting Physician: Dr. French Attending Physician: Sangita Diaz MD History of Present Illness Patient has a history of hypertension for 3-4 years. She was a cigarette smoker for 25 years starting at age 14 up until age 39. She smoked less than a pack per week. She has no history of diabetes or dyslipidemia. She also has a history of migraine headaches since her mid 30s. They occur about once per month on average over the last year. Apparently, the patient had an episode of GI ulcer or perhaps bleeding in May of this year. She was in [facility]. I do not have these records. Apparently she was told that she has had iron deficiency or anemia over the last 2 months and she saw Dr. Tovar twice. He ordered iron infusion. In June of 2019 she apparently had the onset suddenly of slurred words, left facial numbness and drooping and left arm and leg numbness and weakness. She went to hospital in [place] where she was told she had a small stroke and was sent home on aspirin and Plavix. I do not have any of these records as well. She feels that she recovered from most all of the symptoms except a little weakness on the left side as residual. Patient was in the infusion center getting iron yesterday. At 1345 she arrived and at 1415 she had the onset of tingling in her left leg. This involved her calf and the numbness gradually went up her leg and included the left face (cheek). A little later on involved the left upper extremity. She estimates the time from the onset until the time the face arm and leg were numb was about 10 minutes. Following this she noted slurred speech in her words and after that some weakness in her left arm and leg. She felt the worst of it was gone by about 20 minutes or so but still had symptoms when she arrived at the emergency room. On September 15, at 1430 she arrived with a temperature of 37.0, pulse 88 regular, respiratory 20, blood pressure 143/77, and O2 saturation 92 percent. In the ER examination revealed a left facial droop of a mild nature but there was felt to be old. She also had some slight integration solution architect in her left hand and some weakness in her left leg. Patient felt she was still little slurred with speech in the emergency room. Tele stroke determined that no tPA was to be given because of her previous stroke. Her symptoms were mild and vague at that time anyway. CBC showed hemoglobin of 11.6 and hematocrit 35.3. Chem profile was unremarkable. CT scan of the head was unremarkable with no acute changes. CT angiography of the head and neck were unremarkable with no significant vascular stenosis or anomaly. Overnight she had no new symptoms and had no dysrhythmia on telemetry CBC showed a hemoglobin of 11.9 and hematocrit 35.4 and glucose was noted to be 1 2. Triglyceride was 82 and total cholesterol 90. This morning the patient says she has a little bit of dysesthesias and numbness on the inside aspect of the lower leg the left everything else has improved. Allergies Allergy/AdvReac Type Severity Reaction Status Date / Time aspirin Allergy Hives Verified 09/15/19 16:25 codeine Allergy Hives Verified 09/15/19 16:25 ketorolac [From Toradol] Allergy Hives Verified 09/15/19 16:24 latex Allergy Hives Verified 09/15/19 16:25 Penicillins Allergy Hives Verified 09/15/19 16:24 promethazine [From Phenergan] Allergy Hives Verified 09/15/19 16:24 tramadol Allergy Hives Verified 09/15/19 16:24 Home Medications Home Medications Medication Instructions Recorded Confirmed Type Iron-Vitamin C 65/125mg 1 tab PO BID 09/15/19 09/15/19 History albuterol sulfate 2.5 mg INHALATION Q4 PRN 09/15/19 09/15/19 History albuterol sulfate [Ventolin HFA] 2 puff INHALATION Q4 PRN 09/15/19 09/15/19 History aspirin [Aspir-81] 81 mg PO DAILY 09/15/19 09/15/19 History atenolol 50 mg PO HS 09/15/19 09/15/19 History baclofen 10 mg PO TID PRN 09/15/19 09/15/19 History benzonatate 100 mg PO TID PRN 09/15/19 09/15/19 History cetirizine 10 mg PO DAILY PRN 09/15/19 09/15/19 History clopidogrel [Plavix] 75 mg PO DAILY 09/15/19 09/15/19 History diclofenac sodium 50 mg PO BID PRN 09/15/19 09/15/19 History diclofenac sodium [Voltaren] 0 g TOPICAL Q6 PRN 09/15/19 09/15/19 History dicyclomine 10 mg PO TID PRN 09/15/19 09/15/19 History fluticasone propionate [Flonase 2 spray INTRANASAL BID 09/15/19 09/15/19 History Allergy Relief] gabapentin [Neurontin] 300 mg PO QID 09/15/19 09/15/19 History hydroxyzine HCl 30 - 40 mg PO HS PRN 09/15/19 09/15/19 History lisinopril 10 mg PO DAILY 09/15/19 09/15/19 History magnesium oxide [MagOx] 400 mg PO DAILY 09/15/19 09/15/19 History melatonin 3 mg PO HS PRN 09/15/19 09/15/19 History methocarbamol 500 mg PO TID PRN 09/15/19 09/15/19 History naproxen 375 mg PO BID 09/15/19 09/15/19 History omega-3 acid ethyl esters 1 cap PO BID 09/15/19 09/15/19 History omeprazole 20 mg PO BID 09/15/19 09/15/19 History ondansetron HCl [Zofran] 4 mg PO TID PRN 09/15/19 09/15/19 History ranitidine HCl [Zantac] 150 mg PO BID 09/15/19 09/15/19 History risperidone 2 mg PO BID 09/15/19 09/15/19 History senna 8.6 mg PO BID PRN 09/15/19 09/15/19 History sertraline 100 mg PO DAILY 09/15/19 09/15/19 History sucralfate [Carafate] 1 g PO ACHS 09/15/19 09/15/19 History topiramate [Topamax] 50 mg PO BID 09/15/19 09/15/19 History trazodone 250 mg PO HS 09/16/19 09/16/19 History Patient History Medical History (Updated 09/16/19 @ 10:13 by Giancarlo Mcdaniels III, MD) Anemia Bipolar depression Gastritis GI bleed History of CVA (cerebrovascular accident) Hypertension Morbid obesity Stroke Surgical History No pertinent past surgical history S/P appendectomy S/P cholecystectomy S/P hysterectomy S/P tonsillectomy Family History Mother , Mother age 55 of ovarian cancer. Stroke Ovarian cancer Father , She has no details on her father No problems noted. 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 Feels Safe at Home: Yes Safety Concerns: Feels Safe At This Time Smoking Status: Former smoker Age Quit Using Tobacco: 39 ; Years Smoked: 25 ; Cigarettes Per Day: 2 ; Hx Alcohol Use: No Hx Substance Use: No Review of Systems Constitutional: + fatigue and + weakness; no fever Eyes: no diplopia, no eye pain and no worsening vision Ear, Nose, Mouth, Throat: no ear pain, no tinnitus, no hearing loss, no dizziness, no snoring, no hoarseness and no dysphagia Respiratory: no cough and no dyspnea Cardiovascular: no chest pain, no palpitations and no lightheadedness Gastrointestinal: no abdominal pain, no nausea and no vomiting Genitourinary: no dysuria, no urinary frequency and no urinary incontinence Musculoskeletal: no back pain, no neck pain, no radicular pain, no joint pain and no myalgia Integumentary: no rash and no lesions Neurologic: + localized weakness, + numbness and + headache(s); no gait abnormality, no generalized weakness, no tingling, no tremor(s), no abnormal movements, no abnormal speech, no confusion and no memory loss Psychiatric: no depression, no irritability, no anxiety, no difficulty concentrating, no confusion and no hallucinations Endocrine: + fatigue; no flushing Hematologic / Lymphatic: no easy bleeding and no easy bruising Allergy / Immunological: no urticaria and no problem reported Physical Exam Physical Exam: The patient is left-handed. The patient is awake, alert, and attentive. Speech is normal without any aphasia or dysarthria. She can name objects, repeat phrases, and has normal spontaneous speech. Mentation and thought processes are intact, with orie ntation to person, place and time, and normal fund of knowledge. Attention and concentration are normal. Mood and affect are normal and appropriate. General appearance and grooming are normal. Short and long-term memory seem intact to conversation. The discs are sharp with positive venous pulsations bilaterally. There are no exudates, hemorrhages, or blood vessel changes seen. Pupils are 3 mm bilaterally and reactive to light. Extraocular eye muscles are intact without nystagmus. Visual acuity and visual kam seem normal grossly to confrontation. Upper eyelids are to the tops of the pupils bilaterally and she cannot raise either side more. She does not have a masklike face or significant bradykinesia. There are no deficits to sensation in the face in all 3 distributions of the fifth cranial nerve bilaterally. Corneal reflexes are positive bilaterally. The left corner of the mouth does not move as well as the right (moves only slightly). Hearing seems normal to whisper and finger rub bilaterally. Palate moves well without asymmetry. There is normal sternocleidomastoid and trapezius (shoulder shrug) strength bilaterally. Tongue is midline with good strength bilaterally. Patient has frequent intermittent variable lip smacking and chewing with her mouth/limps Neck has a full range of motion without discomfort. There are no cervical bruits bilaterally. There are no cranial or ocular bruits. Heart is without murmur. There is a regular rhythm and rate. Cervical, thoracic, and lumbar spine are nontender to palpation. Gait was not tested and her stance sitting up in bed was poor. With outstretched arms there is no drift. There are no resting, postural, or action tremors. There is no ataxia with finger to nose testing. There is good facility in the hands. No other abnormal involuntary movements are noted. Motor strength is 5/5 diffusely in the arms bilaterally including deltoids, biceps, triceps, brachioradialis, wrist flexors and extensors, integration solution architect, and intrinsic hand muscles. Motor strength is 5/5 diffusely in the legs bilaterally including hip flexors, quadriceps, hamstrings, gastrocnemius, tibialis anterior, tibialis posterior, and Peroneii muscles. Toe extensors are normal and there is good bulk in the extensor digitorum brevis muscles bilaterally. I did not notice any focal weakness in the limbs. The limbs have increased tone diffusely in the arms and legs bilaterally. Sensory examination is intact to touch and pin throughout all 4 limbs diffusely, except for decreased sensation in the top of the foot in the inside of the lower leg on the left. Reflexes are 2/4 in the biceps, triceps, brachioradialis, quadriceps, and Achilles tendons bilaterally. There is no clonus bilaterally. Toes are downgoing with plantar stimulation bilaterally. Peripheral pulses are present and of normal quality distally in all 4 limbs. There is no peripheral edema noted in the limbs. Results & Data Vital Signs (Past 12 Hours) Vital Signs Temp Pulse Pulse Resp BP Pulse Ox 09/16/19 07:40 36.9 C 74 18 111/91 96 09/16/19 07:17 81 09/16/19 03:05 36.9 C 93 H 20 137/96 97 09/16/19 00:00 86 09/15/19 23:35 36.7 C 84 18 123/70 96 PG Care Time/CCT Total # of Minutes Spent Total Time Spent with Patient: Total time spent is greater than 50% in coordination of care (as documented) at patient's floor/unit and/or counseling patient:
[2019-09-16] MEDS ORDERED: SENNA 8.6 MG TAB PO PRN (10:02)
[2019-09-16] MEDS: SODIUM CHLORIDE 0.9% 1000ML 1,000 ML IV SCH (10:59)
[2019-09-16] MEDS: SUCRALFATE 1 GM TAB PO SCH ×2 (11:39→16:20)
[2019-09-16] MEDS ORDERED: NYSTATIN POWDER 15GM BTL EXT PRN (12:05)
--- NOTE | 2019-09-16 12:47 | Magnetic Resonance Report ---
MR brain wo con CLINICAL HISTORY: 44 years-old Female presenting with weakness decreased sensation. TECHNIQUE: Multisequence, multiplanar MR imaging of the brain was performed without the use of intrav enous contrast. IV contrast: None. COMPARISON: Noncontrast CT head performed the previous day. FINDINGS: Localizer images: Unremarkable. Bone marrow signal intensity within the calvarium within normal limits. Normal midline sagittal structures. Ventricles and sulci normal in size. No mass effect or midline sh ift. No restricted diffusion or hemorrhage. Brain parenchyma normal in appearance with preserved san -white differentiation. No extra-axial fluid collection. T2 skull base flow voids preserved. IMPRESSION: 1. No acute intracranial abnormality. Electronically signed by: Harley Diallo M.D. 09/16/2019 12:46 PM
[2019-09-16] MEDS: GABAPENTIN 300 MG CAP PO SCH ×2 (13:02→16:19)
--- NOTE | 2019-09-16 13:50 | Discharge Summary ---
Date of Service September 16, 2019 Admission HPI Per Admitting Provider The patient is a 44 y/o female who presents to the emergency department for evaluation of stroke like symptoms that began prior to arrival. The EMS notes the patient was getting an iron infusion at the [facility] in [facility] when she began having left sided numbness and weakness as well as slurred speech which the staff noticed. EMS states that the patient has a history of HTN, anemia and a stroke one month ago at [place] that was milder than the current symptoms. They report that the RACE scale was 1 for the patient. Last known well was 1410. She notes that she had some facial droop following the prior stroke. The patient denies any other symptoms. Symptoms have started to improve. The CT head and CT angiogram is within normal limits. She will be admitted under observation to rule out TIA. Admission Exam Per Admitting Provider GENERAL : No acute distress. Morbidly obese female EYES: No icterus, gaze conjugate NOSE: No evidence of epistaxis MOUTH: No lesions or candidiasis, mucosa moist NECK: Supple LUNGS: CTA B/L, no wheezes, rales or rhonchi HEART: Regular, rate controlled ABDOMEN: Soft, NT, ND, BS Present EXTREMITIES: No LE edema, pedal pulses intact NEURO: A&OX3. CN's II-XI intact bilaterally and awake Cranial Nerves: sense of smell intact, PERRL, normal accommodation, EOM intact bilaterally, normal facial strength, tongue midline, normal gag reflex, normal hearing, able to rotate head bilaterally, able to elevate shoulders bilaterally, no nystagmus and symmetric palate elevation Principal Diagnosis TIA vs. atypical migraine vs. polypharmacy side effect Discharge Exam Constitutional WD/WN, vitals as above Respiratory normal respiratory effort, lungs clear to auscultation Cardiovascular RRR, no murmur, no edema Gastrointestinal (Abdomen) normal bowel sounds, soft, nontender, no hepatosplenomegaly Skin no rashes, warm and dry Neurologic CN's II-XI intact bilaterally and deep tendon reflexes 2+ bilaterally Motor/Sensory: + sensory deficit (left leg with decreased subjective sensation. symmetric upper ext and face) pt has tardive dyskinesia with lip smacking movements. Psychiatric A+Ox3, euthymic affect Discharge Data Allergies Allergy/AdvReac Type Severity Reaction Status Date / Time aspirin Allergy Hives Verified 09/15/19 16:25 codeine Allergy Hives Verified 09/15/19 16:25 ketorolac [From Toradol] Allergy Hives Verified 09/15/19 16:24 latex Allergy Hives Verified 09/15/19 16:25 Penicillins Allergy Hives Verified 09/15/19 16:24 promethazine [From Phenergan] Allergy Hives Verified 09/15/19 16:24 tramadol Allergy Hives Verified 09/15/19 16:24 Consultations 09/15/19 15:40 ED Decision to Admit Stat 09/15/19 17:24 Consult Case Management - Discharge Planning Routine Consult Neurology Routine Ordered Studies 09/15/19 14:34 CT head/brain wo con Stat 09/15/19 14:35 CT angio head w con Stat CT angio neck with con Stat 09/16/19 10:40 MR brain wo con Urgent Hospital Course (1) TIA (transient ischemic attack): 44 y/o F w/ PMHx of CVA per patient, anemia, migraine, bipolar depression, and hypertension. Presented to ED 09/15 w/ left sided weakness and numbness. She lives in [place], [place]. TIA vs. Atypical Migraine vs. medication side effect in the setting of a questionable CVA one month ago - Per patient she had previous CVA in 06/2019 at [facility]. At that time, started on ASA and Plavix. Previous stroke similar in symptomology to current episode- left sided weakness and numbness. FHx of stroke (mother and brother). CT head and CTA normal. - Neurology consulted who suggested MRI and retrieval of records from [place]. Have been unable to acquire records to this point however MRI negative for acute process and no evidence of prior stroke on imaging. - Hypercoaguable panel ordered, however pt has been receiving Heparin here prior to order so did not order studies that require no AC. Will need follow up of these in the outpatient setting. - Hold aspirin moving forward given history of gastric ulcers and no evidence of stroke (current or former) on imaging. - Continue 75 mg Plavix daily for history of TIAs. - Pt is on a number of neurologically altering agents including multiple muscle relaxants, multiple psychiatric medications. The interactions between these medications could be contributing to her symptoms. Will need to discuss with Psychiatry and PCP for reconciliation of these medications moving forward. Gastric Ulcers - Diagnosed w/ bleeding gastric ulcer 05/2019. - Hold ASA. - Cont home medications: Pantoprazole 40 mg PO twice daily, ranitidine 150 mg PO twice daily, sucralfate 1 gm PO daily. Hypertension - Stable w/ last BP 134/60. - Continue atenolol 50 mg PO daily. Bipolar Disorder - Diagnosed a number of years ago per patient. Follows w/ psych closer to home (ANIKA Watts). Recently increased dose of Risperidone 2 mg one month ago. Tardive dyskinesia present on exam likely due to risperidone. Will follow up with outpatient Psychiatry to make adjustments to her multiple psychiatric medications. - Cont Risperidone 2 mg PO twice daily, consider lowering or discontinue on D/C - Cont Sertraline 100 mg daily - Cont Gabapentin 300 mg PO QID - Cont Topiramate 50 mg PO twice daily (pt unsure why she's on this, is treatment for both migraine ppx and mood stabilization) - Cont Trazodone 250 mg PO daily (for sleep) Chronic Back Pain - Cont Baclofen 10 mg PO three times a day PRN. - Cont Diclofenac topical PRN. (2) Migraine: (3) Morbid obesity: (4) History of CVA (cerebrovascular accident): (5) Bipolar depression: (6) Hypertension: (7) Anemia: (8) GERD (gastroesophageal reflux disease): Total Time Total Time Spent Total Time Spent (In Minutes): see attending attestation. Discharge Plan Discharge Items Patient Disposition: Home - Home Health Services Reason For Visit: TIA Discharge Diagnosis: TIA Activity: Resume your previous activity Non-emergency contact: Primary Care Provider and Hospitalist Call non-emergency contact if: your symptoms worsen Follow-up/Referrals: Eulalio Barry [Primary Care Provider] - Diet: Regular Addtl Attending Provider Instructions: You were admitted to the hospital for concern for a TIA, which you have had in the past. We did imaging of your head to see if there were any strokes and there were not. Neurology saw you and suggested you keep taking your Plavix at home but not your aspirin due to your history of GI upset. We have also changed your Prilosec to Protonix because it works better when you are taking Plavix. You may resume all other medications but please follow up with your primary care doctor within the week to discuss all of your medications. You will continue to have services at home to assist you. Pending Studies at Discharge: Yes Studies:: hypercoagulability studies Stand-Alone Forms: Medications to Prevent Stroke, [facility] Fastnote, Smoking Cessation Medications and DC Order Prescriptions: New pantoprazole 40 mg Tablet,Delayed Release (Dr/Ec) 40 mg PO BID Qty: 60 RF: 1 Continued albuterol sulfate 2.5 mg /3 mL (0.083 %) Solution For Nebulization 2.5 mg INHALATION Q4 PRN (Reason: Shortness Of Breath) RF: 0 atenolol 100 mg Tablet 50 mg PO HS RF: 0 baclofen 10 mg Tablet 10 mg PO TID PRN (Reason: Muscle Pain) RF: 0 omega-3 acid ethyl esters 1 gram capsule 1 cap PO BID RF: 0 methocarbamol 500 mg Tablet 500 mg PO TID PRN (Reason: Muscle Pain) RF: 0 naproxen 375 mg tablet 375 mg PO BID RF: 0 cetirizine 10 mg Tablet 10 mg PO DAILY PRN (Reason: allergies) RF: 0 sucralfate [Carafate] 1 gram tablet 1 g PO ACHS RF: 0 ondansetron HCl [Zofran] 4 mg Tablet 4 mg PO TID PRN (Reason: Nausea) RF: 0 sertraline 100 mg Tablet 100 mg PO DAILY RF: 0 melatonin 3 mg Tablet 3 mg PO HS PRN (Reason: Sleep) RF: 0 clopidogrel [Plavix] 75 mg Tablet 75 mg PO DAILY RF: 0 risperidone 2 mg Tablet 2 mg PO BID RF: 0 magnesium oxide [MagOx] 400 mg (241.3 mg magnesium) tablet 400 mg PO DAILY RF: 0 benzonatate 100 mg Capsule 100 mg PO TID PRN (Reason: Cough) RF: 0 ranitidine HCl [Zantac] 150 mg Tablet 150 mg PO BID RF: 0 lisinopril 10 mg Tablet 10 mg PO DAILY RF: 0 gabapentin [Neurontin] 300 mg capsule 300 mg PO QID RF: 0 diclofenac sodium 50 mg Tablet,Delayed Release (Dr/Ec) 50 mg PO BID PRN (Reason: Pain) RF: 0 albuterol sulfate [Ventolin HFA] 90 mcg/actuation Hfa Aerosol Inhaler 2 puff INHALATION Q4 PRN (Reason: Shortness Of Breath Or Wheezing) RF: 0 hydroxyzine HCl 10 mg Tablet 30 - 40 mg PO HS PRN (Reason: Anxiety) RF: 0 fluticasone propionate [Flonase Allergy Relief] 50 mcg/actuation [place],Suspension 2 spray intranasal BID RF: 0 dicyclomine 10 mg capsule 10 mg PO TID PRN (Reason: Pain) RF: 0 topiramate [Topamax] 50 mg Tablet 50 mg PO BID RF: 0 senna 8.6 mg Capsule 8.6 mg PO BID PRN (Reason: Constipation) RF: 0 diclofenac sodium [Voltaren] 1 % Gel 0 g TOPICAL Q6 PRN (Reason: Pain) RF: 0 Iron-Vitamin C 65/125mg 1 tab PO BID RF: 0 trazodone 100 mg tablet 250 mg PO HS RF: 0 Discontinued aspirin [Aspir-81] 81 mg Tablet,Delayed Release (Dr/Ec) 81 mg PO DAILY RF: 0 omeprazole 20 mg Tablet,Delayed Release (Dr/Ec) 20 mg PO BID RF: 0 Discharge Orders: Discharge Order (Routine); Ordered 09/16/19 Ordered By: Adilia Batres Admission Data Admit Date/Time: 09/15/19 16:04 Attending Provider: Sangita Diaz Admit Provider: Richmond Cueva Primary Care Provider: Eulalio Barry Other Providers: Richmond Cueva ; Giancarlo Mcdaniels III Other Interventions: Discharge Summary Assessment (RN) Last Done: 09/16/19 15:45 DC Date/Time DO NOT enter until pt leaves facility: 09/16/19 17:05 Supervising Physician Co-Signing Physician Notes Resident Physician Supervision Note: I independently interviewed and examined the patient and verified the prater history and physical, reviewed labs and image studies, discussed the case with the resident Dr. Batres and agree with the findings and care plan. Time spent in discharge 35 min Resident Activity Tracking Resident Involvement: Resident Care Provided Care Provided: Adult Hospital Medicine
[2019-09-16] MEDS ORDERED: LISINOPRIL 10 MG TAB PO SCH (14:30)
[2019-09-16] MEDS ORDERED: STROKE PATIENT DISCHARGE STA (14:56)
--- NOTE | 2019-09-16 15:03 | Pharmacy Report ---
Pharmacist Stroke Counseling - Date of Service September 16, 2019 - Scope: Pharmacy has been consulted to provide medication discharge counseling for this patient admitted with transient ischemic attack as per the Pharmacist Discharge Counseling for Stroke Patients Protocol. - Medications on Discharge: Home Medications Medication Instructions Recorded Confirmed Iron-Vitamin C 65/125mg 1 tab PO BID 09/15/19 09/15/19 albuterol sulfate 2.5 mg INHALATION Q4 PRN 09/15/19 09/15/19 albuterol sulfate [Ventolin HFA] 2 puff INHALATION Q4 PRN 09/15/19 09/15/19 aspirin [Aspir-81] 81 mg PO DAILY 09/15/19 09/15/19 atenolol 50 mg PO HS 09/15/19 09/15/19 baclofen 10 mg PO TID PRN 09/15/19 09/15/19 benzonatate 100 mg PO TID PRN 09/15/19 09/15/19 cetirizine 10 mg PO DAILY PRN 09/15/19 09/15/19 clopidogrel [Plavix] 75 mg PO DAILY 09/15/19 09/15/19 diclofenac sodium 50 mg PO BID PRN 09/15/19 09/15/19 diclofenac sodium [Voltaren] 0 g TOPICAL Q6 PRN 09/15/19 09/15/19 dicyclomine 10 mg PO TID PRN 09/15/19 09/15/19 fluticasone propionate [Flonase 2 spray INTRANASAL BID 09/15/19 09/15/19 Allergy Relief] gabapentin [Neurontin] 300 mg PO QID 09/15/19 09/15/19 hydroxyzine HCl 30 - 40 mg PO HS PRN 09/15/19 09/15/19 lisinopril 10 mg PO DAILY 09/15/19 09/15/19 magnesium oxide [MagOx] 400 mg PO DAILY 09/15/19 09/15/19 melatonin 3 mg PO HS PRN 09/15/19 09/15/19 methocarbamol 500 mg PO TID PRN 09/15/19 09/15/19 naproxen 375 mg PO BID 09/15/19 09/15/19 omega-3 acid ethyl esters 1 cap PO BID 09/15/19 09/15/19 omeprazole 20 mg PO BID 09/15/19 09/15/19 ondansetron HCl [Zofran] 4 mg PO TID PRN 09/15/19 09/15/19 ranitidine HCl [Zantac] 150 mg PO BID 09/15/19 09/15/19 risperidone 2 mg PO BID 09/15/19 09/15/19 senna 8.6 mg PO BID PRN 09/15/19 09/15/19 sertraline 100 mg PO DAILY 09/15/19 09/15/19 sucralfate [Carafate] 1 g PO ACHS 09/15/19 09/15/19 topiramate [Topamax] 50 mg PO BID 09/15/19 09/15/19 trazodone 250 mg PO HS 09/16/19 09/16/19 New Rx's Medication Instructions Recorded pantoprazole 40 mg PO BID #60 tab 09/16/19 - Action: The above medications, specifically ones for stroke treatment/prophylaxis, have been reviewed in detail with the patient and/or patient internet sales representative(s) prior to discharge. This includes indication, common adverse reactions, drug interactions, and medication administration. Medication counseling has been employed using the teach-back method to ensure understanding. - Outcome: The patient has demonstrated understanding of the medications. Please note, they are aware that the pharmacist will call them within 72 hours post-discharge to confirm that the appropriate medications are being taken and answer any further medication related questions the patient might have at that time. Contact information Individual to be contacted: Patient Relationship to patient (if applicable): Phone number: [phone] Best time to call: Afternoon Additional comments: Patient was counseled today about continuing on Plavix but that her Aspirin was discontinued per Neurology given her recent history with GI bleed. When I asked if she had any problems with Plavix, she said that she did not. I had called Dr. Serrato and recommended changing patient's Prilosec to Protonix to prevent drug interaction with Plavix. Made patient aware of this switch and explained that Protonix would also protect her from GI ulcer/bleed like the Prilosec. Patient expressed understanding and did not have any questions today. Thank you for allowing pharmacy to be involved in the care of this patient. Please call [phone] or [phone] with any additional questions
[2019-09-16] MEDS ORDERED: PANTOprazole 40 MG TAB PO SCH (21:00)
[2019-09-16] MEDS ORDERED: risperiDONE 2 MG TABLET PO SCH (21:00)
[2019-09-16] MEDS ORDERED: TRAZODONE HCL 100 MG TAB PO SCH (21:00)
[2019-09-16] MEDS ORDERED: FERROUS FUMARATE/ASCORBIC ACID 65 MG CAPCR PO SCH (21:00)
[2019-09-16] MEDS ORDERED: TOPIRAMATE 50 MG TAB PO SCH (21:00)
[2019-09-16] MEDS ORDERED: ATENOLOL 50 MG TABLET PO SCH (21:00)
[2019-09-16] MEDS ORDERED: OMEGA-3 (PURIFIED FISH OIL) 1 GM CAP PO SCH (21:00)
[2019-09-17] MEDS ORDERED: SERTRALINE HCL 100 MG TABLET PO SCH (09:00)
[2019-09-17] MEDS ORDERED: MAGNESIUM OXIDE 400 MG TAB PO SCH (09:00)
[2019-09-17] MEDS ORDERED: CLOPIDOGREL BISULFATE 75 MG TAB PO SCH (09:00)
--- NOTE | 2019-09-19 13:34 | Pharmacy Report ---
Pharmacist Post D/C Phone Note - Phone Note: Date of phone call: September 19, 2019. Individual with whom pharmacist spoke to: DOUG CRESPO The following questions were reviewed during the phone call with responses listed below each: Can you tell me the medications that you are currently taking as well as when and how you take each medication? -See Table Below When have you missed any doses of your medications? - none What side effects are you having from your medications, specifically, the new medications you were started on? - none reported What questions do you have about your medications? - none What problems are you having obtaining your medications? - none When is your next appointment with your primary care doctor? - none Additional comments: - Reviewed medication list with patient. Patient seemed rushed during interview questions and provided limited responses to questions. Patient reports not taking naproxen any more and also not taking zantac due to recent recall on medication. She had a PCP visit today and her provider is aware of recent medication changes and aware that patient not longer taking zantac. Reviewed that protonix was replacing omeprazole - patient already aware. Reports no complaints today or concerns. No other pertinent positives on interview today As per the Pharmacist Discharge Counseling for Stroke Patients Protocol, this phone call has been completed within 72 hours of discharge. Thank you for allowing us to be involved in the care of this patient. - Home Medications: Home Medications Medication Instructions Recorded Confirmed Iron-Vitamin C 65/125mg 1 tab PO BID 09/15/19 09/15/19 albuterol sulfate 2.5 mg INHALATION Q4 PRN 09/15/19 09/15/19 albuterol sulfate [Ventolin HFA] 2 puff INHALATION Q4 PRN 09/15/19 09/15/19 atenolol 50 mg PO HS 09/15/19 09/15/19 baclofen 10 mg PO TID PRN 09/15/19 09/15/19 benzonatate 100 mg PO TID PRN 09/15/19 09/15/19 cetirizine 10 mg PO DAILY PRN 09/15/19 09/15/19 clopidogrel [Plavix] 75 mg PO DAILY 09/15/19 09/15/19 diclofenac sodium 50 mg PO BID PRN 09/15/19 09/15/19 diclofenac sodium [Voltaren] 0 g TOPICAL Q6 PRN 09/15/19 09/15/19 dicyclomine 10 mg PO TID PRN 09/15/19 09/15/19 fluticasone propionate [Flonase 2 spray INTRANASAL BID 09/15/19 09/15/19 Allergy Relief] gabapentin [Neurontin] 300 mg PO QID 09/15/19 09/15/19 hydroxyzine HCl 30 - 40 mg PO HS PRN 09/15/19 09/15/19 lisinopril 10 mg PO DAILY 09/15/19 09/15/19 magnesium oxide [MagOx] 400 mg PO DAILY 09/15/19 09/15/19 melatonin 3 mg PO HS PRN 09/15/19 09/15/19 methocarbamol 500 mg PO TID PRN 09/15/19 09/15/19 omega-3 acid ethyl esters 1 cap PO BID 09/15/19 09/15/19 ondansetron HCl [Zofran] 4 mg PO TID PRN 09/15/19 09/15/19 risperidone 2 mg PO BID 09/15/19 09/15/19 senna 8.6 mg PO BID PRN 09/15/19 09/15/19 sertraline 100 mg PO DAILY 09/15/19 09/15/19 sucralfate [Carafate] 1 g PO ACHS 09/15/19 09/15/19 topiramate [Topamax] 50 mg PO BID 09/15/19 09/15/19 trazodone 250 mg PO HS 09/16/19 09/16/19 New Rx's Medication Instructions Recorded pantoprazole 40 mg PO BID #60 tab 09/16/19
[2019-09-23 14:13] LABS: Anti Cardiolipin Ab IgG <14 GPL (< = 14); Anti Cardiolipin Ab IgM <12 MPL (< = 12); Anti-Cardiolipin Ab IgA <11 APL (< = 11); B2 Glycoprotein IgA <9 SAU (<=20); B2 Glycoprotein IgG <9 SGU (<=20); B2 Glycoprotein IgM <9 SMU (<=20)
== END 2019-09-16 17:05 | disposition home health service (06) ==
LOC: ED 14:42 → 2E 14:42 → SUATTDRO 16:04 → 2E 16:59

== ENCOUNTER 2019-10-28 10:55 | Observation (INO) ==
--- NOTE | 2019-10-28 11:38 | XRay Report ---
SINGLE VIEW CHEST CLINICAL HISTORY: Atypical chest pain. FINDINGS: An AP, portable, upright chest radiograph is compared to study dated 09/15/2019. The examin ation is degraded by portable technique, large body habitus, and patient rotation. The cardiomediasti nal silhouette is unremarkable. The lungs and pleural spaces are clear. No pneumothorax is seen. The bony thorax is grossly intact. IMPRESSION: No active disease in the chest. ACT 112: Negative or not required by law. Electronically signed by: Pino Campbell M.D. 10/28/2019 11:36 AM
[2019-10-28 11:42] LABS: Basophils # (auto) 0.01 K/uL (0-0.2); Basophils % (auto) 0.1 %; Eosinophils # (auto) 0.01 K/uL (0-0.5); Eosinophils % (auto) 0.1 %; Hematocrit (blood only) 40.9 % (37-47); Hemoglobin 13.6 g/dL (12.0-16.0); Immature Granulocytes # (auto) 0.09 K/uL (0.00-0.02); Immature Granulocytes % (auto) 0.8 %; Lymphocytes # (auto) 1.84 K/uL (1.2-3.4); Lymphocytes % (auto) 15.6 %; Mean Corpuscular Hemoglobin 29.1 pg (25-34); Mean Corpuscular Hgb Conc 33.3 g/dL (32-36); Mean Corpuscular Volume 87.4 fL (80-100); Mean Platelet Volume 9.5 fL (7.4-10.4); Monocytes # (auto) 0.63 K/uL (0.11-0.59); Monocytes % (auto) 5.3 %; Neutrophils # (auto) 9.21 K/uL (1.4-6.5); Neutrophils % (auto) 78.1 %; Platelet Count 214 K/uL (130-400); RDW Coefficient of Variation 14.9 % (11.5-14.5); RDW Standard Deviation 47.6 fL (36.4-46.3); Red Blood Count 4.68 M/uL (4.2-5.4); White Blood Count 11.79 K/uL (4.8-10.8)
[2019-10-28 12:04] LABS: Alanine Aminotransferase 27 U/L (12-78); Albumin Level 3.4 gm/dl (3.4-5.0); BUN Creatinine Ratio 9.1 (10-20); Blood Urea Nitrogen 8 mg/dl (7-18); Calcium 9.5 mg/dl (8.5-10.1); Carbon Dioxide 26 mmol/L (21-32); Chloride 109 mmol/L (98-107); Est GFR (African American) 93.3; Est GFR (Non-African American) 80.5; Glucose 116 mg/dl (70-99); Sodium 140 mmol/L (136-145)
[2019-10-28 12:07] LABS: Albumin Globulin Ratio 0.8 (0.9-2); Alkaline Phosphatase 72 U/L (45-117); Bilirubin,Total 0.5 mg/dl (0.2-1); Globulin 4.2 gm/dl (2.5-4.0); Total Protein 7.6 gm/dl (6.4-8.2); Troponin I < 0.015 ng/ml (0-0.045)
--- NOTE | 2019-10-28 13:04 | CT Scan Report ---
CT head/brain wo con CT DOSE: 537.48 mGy.cm HISTORY: Mental status change right sided numbness TECHNIQUE: Multiaxial CT images of the head were performed without the use of intravenous contrast. A dose lowering technique was utilized adhering to the principles of ALARA. Comparison: 09/15/2019 Findings: The paranasal sinuses and mastoid air cells are clear. The calvarium and skull base are int act. The ventricles and sulci are within normal limits. There is no mass, hematoma, midline shift, or acute infarct. Impression: No acute intracranial abnormality. ACT 112: Negative or not required by law. The above report was generated using voice recognition software. It may contain grammatical, syntax or spelling errors. Electronically signed by: Angel Tee M.D. 10/28/2019 1:02 PM
[2019-10-28 13:10] LABS: Potassium 3.4 mmol/L (3.5-5.1); Prothrombin Time 10.6 Seconds (9.0-12.0)
[2019-10-28 13:11] LABS: D Dimer 780 ug/L FEU (0-500)
[2019-10-28] MEDS: OPTIRAY 320 125ml IV PRN (14:15)
--- NOTE | 2019-10-28 15:38 | History & Physical Report ---
Date of Service October 28, 2019 Assessment & Plan (1) Chest pain: Patient complaining of 2 days of right sided chest discomfort, constant, non-pleuritic/non-exertional/not associated with movement. +SOB, dizziness as well. Troponin x 1 negative. EKG with no acute ischemic changes. Risk factors for CAD include HTN and morbid obesity as well as reported history of TIA. HEART score = 2 making the patient low risk. Most likely not cardiac chest pain. IndD3V=8.8 on 09/15/19, Lipid profile 09/16/19 normal -Observation with cardiac monitoring -Trend troponin -Continue ASA and Plavix Present on Admission?: Yes (2) Right sided numbness: Patient reports right sided sensory deficit, weakness of right leg appreciated during exam. Reported history of TIA x 2 in the past -Observation with telemetry, neuro checks -Obtain imaging from outside facility. -MRI brain -Continue ASA and Plavix Present on Admission?: Yes (3) Elevated d-dimer: Patient with complaint of CP. No SOB, tachycardia or hypoxia. Patient can be ruled out for PE by PERC criteria. Very low suspicion for PE -Will not obtain imaging at this time Present on Admission?: Yes (4) Morbid obesity: Patient should lose weight. Lifestyle modifications, diet and exercise encouraged. Present on Admission?: Yes (5) TIA (transient ischemic attack): Report of prior TIA x 2 -MRI today for deficits described above -Neuro checks -Continue ASA/Plavix -Hold antihypertensive agents for now -Consider Neuro consult pending imaging results Present on Admission?: Yes (6) Bipolar depression: Patient reports moods are stable -Continue home medications, Sertraline, Risperdal, Topamax -Trazodone for sleep -Hydroxyzine PRN anxiety Present on Admission?: Yes (7) Hypertension: Blood pressure stable -Holding antihypertensives for now, Atenolol and Lisinopril Present on Admission?: Yes (8) GERD (gastroesophageal reflux disease): Remote history of UGIB secondary to gastritis. -Continue Protonix and Sucralfate Present on Admission?: Yes (9) Anemia: Stable H/H. No bleeding -Continue Iron/Vitamin C supplement F/E/N - [place]. Monitor electrolytes. Heart healthy diet as tolerated. Hold vitamins Ppx - SCDs Code - Full Dispo - Obs to [facility] Present on Admission?: Yes History of Present Illness Chief Complaint: CP Primary Care Provider: Eulalio Jhonny 44yo C female presenting with right sided CP x 2 days, non-exertional/non-ple uritic, radiation down right arm, stabbing in nature, 8/10 in severity. Also with dizziness and occasional SOB. No prior h/o CAD. While in the ER she developed right leg numbness and weakness. Mild INGRAM and blurry vision in the right eye No additional complaints at this time. ER Course: No meds given Allergies Allergy/AdvReac Type Severity Reaction Status Date / Time aspirin Allergy Hives Verified 10/28/19 12:02 codeine Allergy Hives Verified 10/28/19 12:02 ketorolac [From Toradol] Allergy Hives Verified 10/28/19 12:02 latex Allergy Hives Verified 10/28/19 12:02 Penicillins Allergy Hives Verified 10/28/19 12:02 promethazine [From Phenergan] Allergy Hives Verified 10/28/19 12:02 tramadol Allergy Hives Verified 10/28/19 12:02 Home Medications Home Medications Medication Instructions Recorded Confirmed Type albuterol sulfate 2.5 mg INHALATION Q4 PRN 09/15/19 10/28/19 History albuterol sulfate [Ventolin HFA] 2 puff INHALATION Q4 PRN 09/15/19 10/28/19 History atenolol 50 mg PO HS 09/15/19 10/28/19 History baclofen 10 mg PO TID PRN 09/15/19 10/28/19 History benzonatate 100 mg PO TID PRN 09/15/19 10/28/19 History cetirizine 10 mg PO DAILY PRN 09/15/19 10/28/19 History clopidogrel [Plavix] 75 mg PO QAM 09/15/19 10/28/19 History diclofenac sodium 50 mg PO BID PRN 09/15/19 10/28/19 History diclofenac sodium [Voltaren] 0 g TOPICAL Q6 PRN 09/15/19 10/28/19 History dicyclomine 10 mg PO TID PRN 09/15/19 10/28/19 History gabapentin [Neurontin] 300 mg PO QID 09/15/19 10/28/19 History hydroxyzine HCl 30 - 40 mg PO HS PRN 09/15/19 10/28/19 History lisinopril 10 mg PO QAM 09/15/19 10/28/19 History magnesium oxide [MagOx] 400 mg PO QAM 09/15/19 10/28/19 History melatonin 3 mg PO HS PRN 09/15/19 10/28/19 History methocarbamol 500 mg PO TID PRN 09/15/19 10/28/19 History omega-3 acid ethyl esters 1 cap PO BID 09/15/19 10/28/19 History ondansetron HCl [Zofran] 4 mg PO TID PRN 09/15/19 10/28/19 History risperidone 2 mg PO BID 09/15/19 10/28/19 History senna 8.6 mg PO BID PRN 09/15/19 10/28/19 History sertraline 100 mg PO QAM 09/15/19 10/28/19 History sucralfate [Carafate] 1 g PO ACHS 09/15/19 10/28/19 History topiramate [Topamax] 50 mg PO BID 09/15/19 10/28/19 History pantoprazole 40 mg PO BID #60 tab 09/16/19 10/28/19 Rx trazodone 250 mg PO HS 09/16/19 10/28/19 History iron,carbonyl-vitamin C [Vitron-C] 1 tab PO BID 10/28/19 10/28/19 History Past Med/Surg History Medical History (Updated 10/28/19 @ 15:44 by Vilma Borges DO) Anemia Bipolar depression Gastritis GI bleed Hypertension Morbid obesity Surgical History (Updated 10/28/19 @ 15:23 by Vilma Borges DO) S/P appendectomy S/P cholecystectomy S/P hysterectomy S/P tonsillectomy Family History Mother , Mother age 55 of ovarian cancer. Stroke Ovarian cancer Father , She has no details on her father No problems noted. 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 Feels Safe at Home: Yes Smoking Status: Never smoker Age Quit Using Tobacco: 39 ; Cigarettes Per Day: 2 ; Hx Alcohol Use: No Hx Substance Use: No Review of Systems Review of Systems: All systems reviewed & are unremarkable except as noted in HPI & below Physical Exam Physical Exam: General: patient resting comfortably, NAD, non-toxic in appearance, AA&O x 4 Skin: warm, dry, intact, no rashes or lesions HEENT: NC/AT, PERRL, EOMI, anicteric sclera, conjunctiva without injection, external ear normal to inspection and nontender, nares patent, moist mucus membranes, edentulous, no oropharyngeal lesions, neck supple, trachea midline, no LAD, no thyromegaly, no JVD Heart: +S1/S2, regular, no m/r/g Lungs: equal air entry bilaterally, no rales/rhonchi/wheezes Abd: +BS, soft, NT/ND, no masses/organomegaly/ascites Ext: warm, 2+ pulses in UE/LE bilaterally, no clubbing/cyanosis or edema Neuro: patient AA&O x 4, speech intact, no facial droop, diminished sensation to light touch on RUE/RLE, diminished strength in RLE 4/5 Results & Data Vital Signs (Past 12 Hours) Vital Signs Temp Pulse Pulse Resp BP BP Pulse Ox 10/28/19 14:30 75 16 104/80 10/28/19 13:48 76 16 142/85 H 10/28/19 12:11 75 20 120/79 97 10/28/19 10:59 36.4 C L 75 18 142/78 H 99 Laboratory Results Lab Results 10/28/19 10/28/19 10/28/19 Range/Units 11:24 11:24 11:24 WBC 11.79 H (4.8-10.8) K/uL RBC 4.68 (4.2-5.4) M/uL Hgb 13.6 (12.0-16.0) g/dL Hct 40.9 (37-47) % MCV 87.4 (80-100) fL MCH 29.1 (25-34) pg MCHC 33.3 (32-36) g/dL RDW Std Deviation 47.6 H (36.4-46.3) fL RDW Coeff of Sylvia 14.9 H (11.5-14.5) % Plt Count 214 (130-400) K/uL MPV 9.5 (7.4-10.4) fL Immature Gran % (Auto) 0.8 % Neut % (Auto) 78.1 % Lymph % (Auto) 15.6 % [place] % (Auto) 5.3 % Eos % (Auto) 0.1 % Baso % (Auto) 0.1 % Immature Gran # (Auto) 0.09 H (0.00-0.02) K/uL Neut # (Auto) 9.21 H (1.4-6.5) K/uL Lymph # (Auto) 1.84 (1.2-3.4) K/uL [place] # (Auto) 0.63 H (0.11-0.59) K/uL Eos # (Auto) 0.01 (0-0.5) K/uL Baso # (Auto) 0.01 (0-0.2) K/uL PT Cancelled INR Cancelled APTT Cancelled PTT Ratio Cancelled D-Dimer (0-500) ug/L FEU Sodium 140 (136-145) mmol/L Potassium (3.5-5.1) mmol/L Chloride 109 H (98-107) mmol/L Carbon Dioxide 26 (21-32) mmol/L Anion Gap 6.0 (3-11) BUN 8 (7-18) mg/dl Creatinine 0.88 (0.6-1.2) mg/dl Est Cr Clr Drug Dosing Not Reportable Est GFR ( Amer) 93.3 Est GFR (Non-Af Amer) 80.5 BUN/Creatinine Ratio 9.1 L (10-20) Glucose 116 H (70-99) mg/dl Calcium 9.5 (8.5-10.1) mg/dl Total Bilirubin 0.5 (0.2-1) mg/dl AST (15-37) U/L ALT 27 (12-78) U/L Alkaline Phosphatase 72 (45-117) U/L Troponin I < 0.015 (0-0.045) ng/ml Total Protein 7.6 (6.4-8.2) gm/dl Albumin 3.4 (3.4-5.0) gm/dl Globulin 4.2 H (2.5-4.0) gm/dl Albumin/Globulin Ratio 0.8 L (0.9-2) 10/28/19 10/28/19 Range/Units 12:44 12:44 WBC (4.8-10.8) K/uL RBC (4.2-5.4) M/uL Hgb (12.0-16.0) g/dL Hct (37-47) % MCV (80-100) fL MCH (25-34) pg MCHC (32-36) g/dL RDW Std Deviation (36.4-46.3) fL RDW Coeff of Sylvia (11.5-14.5) % Plt Count (130-400) K/uL MPV (7.4-10.4) fL Immature Gran % (Auto) % Neut % (Auto) % Lymph % (Auto) % [place] % (Auto) % Eos % (Auto) % Baso % (Auto) % Immature Gran # (Auto) (0.00-0.02) K/uL Neut # (Auto) (1.4-6.5) K/uL Lymph # (Auto) (1.2-3.4) K/uL [place] # (Auto) (0.11-0.59) K/uL Eos # (Auto) (0-0.5) K/uL Baso # (Auto) (0-0.2) K/uL PT 10.6 INR 1.0 APTT 26.0 PTT Ratio 1.0 D-Dimer 780 H* (0-500) ug/L FEU Sodium (136-145) mmol/L Potassium 3.4 L (3.5-5.1) mmol/L Chloride (98-107) mmol/L Carbon Dioxide (21-32) mmol/L Anion Gap (3-11) BUN (7-18) mg/dl Creatinine (0.6-1.2) mg/dl Est Cr Clr Drug Dosing Est GFR ( Amer) Est GFR (Non-Af Amer) BUN/Creatinine Ratio (10-20) Glucose (70-99) mg/dl Calcium (8.5-10.1) mg/dl Total Bilirubin (0.2-1) mg/dl AST 16 (15-37) U/L ALT (12-78) U/L Alkaline Phosphatase (45-117) U/L Troponin I (0-0.045) ng/ml Total Protein (6.4-8.2) gm/dl Albumin (3.4-5.0) gm/dl Globulin (2.5-4.0) gm/dl Albumin/Globulin Ratio (0.9-2) Diagnostic Findings SINGLE VIEW CHEST CLINICAL HISTORY: Atypical chest pain. FINDINGS: An AP, portable, upright chest radiograph is compared to study dated 09/15/2019. The examination is degraded by portable technique, large body habitus, and patient rotation. The cardiomediastinal silhouette is unremarkable. The lungs and pleural spaces are clear. No pneumothorax is seen. The bony thorax is grossly intact. IMPRESSION: No active disease in the chest. ACT 112: Negative or not required by law. CT head/brain wo con CT DOSE: 537.48 mGy.cm HISTORY: Mental status change right sided numbness TECHNIQUE: Multiaxial CT images of the head were performed without the use of intravenous contrast. A dose lowering technique was utilized adhering to the principles of ALARA. Comparison: 09/15/2019 Findings: The paranasal sinuses and mastoid air cells are clear. The calvarium and skull base are intact. The ventricles and sulci are within normal limits. There is no mass, hematoma, midline shift, or acute infarct. Impression: No acute intracranial abnormality. ACT 112: Negative or not required by law. The above report was generated using voice recognition software. It may contain grammatical, syntax or spelling errors. Electronically signed by: Angel Tee M.D. 10/28/2019 1:02 PM Dictated: 10/28/19 1259 Transcribed: 10/28/19 1259 ECG Additional Comments: NSR at 79, normal axis, ER=961, QRS=90, QLo=487, no acute ischemia Code Status & VTE Plan Code Status FULL VTE Prophylaxis Plan VTE Prophylaxis will be ordered: Yes PG Care Time/CCT Total # of Minutes Spent Total Time Spent with Patient: Total time spent is greater than 50% in coordination of care (as documented) at patient's floor/unit and/or counseling patient: (1) Anemia Anemia type: unspecified type Qualified Code(s): D64.9 - Anemia, unspecified (2) GERD (gastroesophageal reflux disease) Esophagitis presence: with esophagitis Qualified Code(s): K21.0 - Gastro- esophageal reflux disease with esophagitis (3) Chest pain Chest pain type: other chest pain Qualified Code(s): R07.89 - Other chest pain (4) Hypertension Hypertension type: essential hypertension Qualified Code(s): I10 - Essential (primary) hypertension
--- NOTE | 2019-10-28 16:01 | Emergency Department Note ---
Entered by Tima De La Fuente acting as a scribe for ED Provider Note CHIEF COMPLAINT: Chest pain HISTORY OF PRESENT ILLNESS: The patient is a 44 year old female who presents to the Emergency Room with complaints of constant left sided chest pain that started a couple of days ago. The patient rates the pain as a 9/10 in severity and notes it radiates down her left arm. The patient also has right sided numbness, including her right jaw and face, right arm, and right leg, that started 2 days ago. The patient has a history of TIA x2 with his last episode occurring last month. She was seen in [place] and kept overnight for observation. The patient had a MRI done in [facility] er and a CT scan as well. The patient takes Aspirin and Plavix daily. The patient has a family history of [place] and TIA. She is a former smoker. Pt denies LOC, headache, fevers, chills, diaphoresis, visual changes, neck pain, breathing difficulties, nausea, vomiting, abdominal pain, back pain, melena, hematochezia, urinary symptoms, weakness, lymphadenopathy, rash, or other complaints. REVIEW OF SYSTEMS: See HPI for pertinent positives and negatives. A total of ten systems were reviewed and were otherwise negative. PMHx/PSHx: CVA, TIA, DVT, GERD, HTN, Anemia, Bipolar depression SOCIAL HISTORY: Patient lives at home. PHYSICAL EXAM: GENERAL: Awake, alert, well-appearing, in no distress HENT: Normocephalic, atraumatic. Oropharynx unremarkable. EYES: Normal conjunctiva. Sclera non-icteric. NECK: Inspection normal. Non-tender. Supple. No nuchal rigidity. FROM. No masses. RESPIRATORY: Clear to auscultation. No wheezes. No rales. Normal respiratory effort. CARDIAC: Normal rate. Normal rhythm. No murmurs. No rubs. Extremities warm and well perfused. Pulses equal. No JVD. GI: Soft, non-distended. No tenderness to palpation. No rebound or guarding. No masses. RECTAL: Deferred. MUSCULOSKELETAL: Atraumatic. Chest examination reveals no tenderness. The back is symmetrical on inspection without obvious abnormality. There is no CVA tenderness to palpation. No joint edema. LOWER EXTREMITIES: Calves are equal size bilaterally and non-tender. No edema. No discoloration. NEURO: Normal sensorium. No motor deficits besides weakness in the right leg. Cranial nerves intact except for subjective decreased sensation to the right cheek and jaw. No drift in upper extremities. SKIN: No rash or jaundice noted. EMERGENCY DEPARTMENT COURSE: 1209: The patient was evaluated in room A02, and a complete history and physical examination were performed. 1432: I reevaluated the patient and updated her on the treatment plan. I discussed the patient's case with Dr. Jony Hart [facility] Hospitalist and she is going to accept her for further evaluation. MEDICAL DECISION MAKING: Prior records/ancillary studies reviewed. The patient had a TIA work-up performed at the [facility] in July. She presented with strokelike symptoms, no TIA was given, work-up was negative and she was discharged. Records also showed the patient was seen in the ED for a fall and back pain on 10/14/19. Triage Nursing notes reviewed and agree them. Additional history obtained from the family. The patient's history was concerning for chest pain. Differential diagnosis: Etiologies such as cardiac ischemia, aortic dissection, pulmonary embolism, pneumonia, pneumothorax, musculoskeletal, infections, pericarditis, myocarditis, esophageal rupture, gastrointestinal, as well as others were entertained. Physical examination: As above. ER treatment provided: No medication given. The patient took her home aspirin and Plavix before coming to the hospital. On reassessment the patient felt better. Diagnostic interpretation by me: The electrocardiogram was negative for pathologic change. The labs revealed an unremarkable CBC except for slight leukocytosis. Chemistry panel unremarkable. The patient's troponin is negative. D-dimer performed and was mildly elevated. Imaging studies: Chest x-ray performed and was negative for acute process. CT imaging of the head was negative for acute stroke, bleed or other pathology. CT PE study was ordered but the patient had a malfunction of her IV and the study could not be completed. IV team summoned for new IV placement. Consultation: A consultation was placed with the hospitalist. The case was discussed and diagnostics were reviewed. Further neurologic and chest pain work-up will be performed in the hospital. The patient was evaluated in the ER for further treatment. IMPRESSION: Left sided chest pain Right sided numbness Elevated d-dimer PLAN: Being evaluated by the hospitalist The scribe's documentation has been prepared under my direction and personally reviewed by me in its entirety. I confirm that the note above accurately reflects all work, treatment, procedures, and medical decision making performed by me. Impression & Plan Left-sided chest pain, Right sided numbness, Elevated d-dimer Past Med/Surg History Medical History (Updated 10/28/19 @ 15:44 by Vilma Borges DO) Anemia Bipolar depression Gastritis GI bleed Hypertension Morbid obesity Surgical History (Updated 10/28/19 @ 15:23 by Vilma Borges DO) S/P appendectomy S/P cholecystectomy S/P hysterectomy S/P tonsillectomy Family History Mother , Mother age 55 of ovarian cancer. Stroke Ovarian cancer Father , She has no details on her father No problems noted. 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 Feels Safe at Home: Yes Smoking Status: Never smoker Age Quit Using Tobacco: 39 ; Cigarettes Per Day: 2 ; Hx Alcohol Use: No Hx Substance Use: No Results & Data Vital Signs Vital Signs - 24 hr 10/28/19 10:59 10/28/19 12:11 10/28/19 13:48 Temperature 36.4 C L Temperature Source Oral Pulse Rate 75 Pulse Rate [Finger] 75 76 Respiratory Rate 18 20 16 Respiratory Effort / Characteristics Non-Labored Non-Labored Respiratory Depth Normal Normal Respiratory Pattern Regular Blood Pressure 142/78 H Blood Pressure [Right Arm] 120/79 142/85 H Blood Pressure Mean 99 Blood Pressure Mean [Right Arm] 92 104 Pulse Oximetry 99 97 Oxygen Delivery Method Room Air Room Air Sepsis Recent Fever Within 48 Hours No Sepsis Action Taken by Nursing No Action Required 10/28/19 14:30 Temperature Temperature Source Pulse Rate Pulse Rate [Finger] 75 Respiratory Rate 16 Respiratory Effort / Characteristics Respiratory Depth Respiratory Pattern Blood Pressure Blood Pressure [Right Arm] 104/80 Blood Pressure Mean Blood Pressure Mean [Right Arm] 88 Pulse Oximetry Oxygen Delivery Method Sepsis Recent Fever Within 48 Hours Sepsis Action Taken by Usp Medications Current Medication List: was personally reviewed by me Laboratory Data Attestation: I reviewed the patient's lab results. Result diagrams: 10/28/19 11:24 10/28/19 12:44 Lab Results 10/28/19 10/28/19 10/28/19 Range/Units 11:24 11:24 11:24 WBC 11.79 H (4.8-10.8) K/uL RBC 4.68 (4.2-5.4) M/uL Hgb 13.6 (12.0-16.0) g/dL Hct 40.9 (37-47) % MCV 87.4 (80-100) fL MCH 29.1 (25-34) pg MCHC 33.3 (32-36) g/dL RDW Std Deviation 47.6 H (36.4-46.3) fL RDW Coeff of Sylvia 14.9 H (11.5-14.5) % Plt Count 214 (130-400) K/uL MPV 9.5 (7.4-10.4) fL Immature Gran % (Auto) 0.8 % Neut % (Auto) 78.1 % Lymph % (Auto) 15.6 % [place] % (Auto) 5.3 % Eos % (Auto) 0.1 % Baso % (Auto) 0.1 % Immature Gran # (Auto) 0.09 H (0.00-0.02) K/uL Neut # (Auto) 9.21 H (1.4-6.5) K/uL Lymph # (Auto) 1.84 (1.2-3.4) K/uL [place] # (Auto) 0.63 H (0.11-0.59) K/uL Eos # (Auto) 0.01 (0-0.5) K/uL Baso # (Auto) 0.01 (0-0.2) K/uL PT Cancelled INR Cancelled APTT Cancelled PTT Ratio Cancelled D-Dimer (0-500) ug/L FEU Sodium 140 (136-145) mmol/L Potassium (3.5-5.1) mmol/L Chloride 109 H (98-107) mmol/L Carbon Dioxide 26 (21-32) mmol/L Anion Gap 6.0 (3-11) BUN 8 (7-18) mg/dl Creatinine 0.88 (0.6-1.2) mg/dl Est Cr Clr Drug Dosing Not Reportable Est GFR ( Amer) 93.3 Est GFR (Non-Af Amer) 80.5 BUN/Creatinine Ratio 9.1 L (10-20) Glucose 116 H (70-99) mg/dl Calcium 9.5 (8.5-10.1) mg/dl Total Bilirubin 0.5 (0.2-1) mg/dl AST (15-37) U/L ALT 27 (12-78) U/L Alkaline Phosphatase 72 (45-117) U/L Troponin I < 0.015 (0-0.045) ng/ml Total Protein 7.6 (6.4-8.2) gm/dl Albumin 3.4 (3.4-5.0) gm/dl Globulin 4.2 H (2.5-4.0) gm/dl Albumin/Globulin Ratio 0.8 L (0.9-2) 10/28/19 10/28/19 Range/Units 12:44 12:44 WBC (4.8-10.8) K/uL RBC (4.2-5.4) M/uL Hgb (12.0-16.0) g/dL Hct (37-47) % MCV (80-100) fL MCH (25-34) pg MCHC (32-36) g/dL RDW Std Deviation (36.4-46.3) fL RDW Coeff of Sylvia (11.5-14.5) % Plt Count (130-400) K/uL MPV (7.4-10.4) fL Immature Gran % (Auto) % Neut % (Auto) % Lymph % (Auto) % [place] % (Auto) % Eos % (Auto) % Baso % (Auto) % Immature Gran # (Auto) (0.00-0.02) K/uL Neut # (Auto) (1.4-6.5) K/uL Lymph # (Auto) (1.2-3.4) K/uL [place] # (Auto) (0.11-0.59) K/uL Eos # (Auto) (0-0.5) K/uL Baso # (Auto) (0-0.2) K/uL PT 10.6 INR 1.0 APTT 26.0 PTT Ratio 1.0 D-Dimer 780 H* (0-500) ug/L FEU Sodium (136-145) mmol/L Potassium 3.4 L (3.5-5.1) mmol/L Chloride (98-107) mmol/L Carbon Dioxide (21-32) mmol/L Anion Gap (3-11) BUN (7-18) mg/dl Creatinine (0.6-1.2) mg/dl Est Cr Clr Drug Dosing Est GFR ( Amer) Est GFR (Non-Af Amer) BUN/Creatinine Ratio (10-20) Glucose (70-99) mg/dl Calcium (8.5-10.1) mg/dl Total Bilirubin (0.2-1) mg/dl AST 16 (15-37) U/L ALT (12-78) U/L Alkaline Phosphatase (45-117) U/L Troponin I (0-0.045) ng/ml Total Protein (6.4-8.2) gm/dl Albumin (3.4-5.0) gm/dl Globulin (2.5-4.0) gm/dl Albumin/Globulin Ratio (0.9-2) Administered Medications Ioversol (Optiray 320 125ml) 120 ml IV ONCE PRN PRN Reason: Interaction Checking Stop: 11/01/19 14:14 Last Admin: 10/28/19 14:15 Dose: 120 ml Documented by: [id number] Imaging Data Radiologist's Impression: Radiology results as stated below per my review and the radiologist's interpretation: SINGLE VIEW CHEST CLINICAL HISTORY: Atypical chest pain. FINDINGS: An AP, portable, upright chest radiograph is compared to study dated 09/15/2019. The examination is degraded by portable technique, large body habitus, and patient rotation. The cardiomediastinal silhouette is unremarkable. The lungs and pleural spaces are clear. No pneumothorax is seen. The bony thorax is grossly intact. IMPRESSION: No active disease in the chest. ACT 112: Negative or not required by law. Electronically signed by: Pino Campbell M.D. 10/28/2019 11:[address] head/brain wo con CT DOSE: 537.48 mGy.cm HISTORY: Mental status change right sided numbness TECHNIQUE: Multiaxial CT images of the head were performed without the use of intravenous contrast. A dose lowering technique was utilized adhering to the principles of ALARA. Comparison: 09/15/2019 Findings: The paranasal sinuses and mastoid air cells are clear. The calvarium and skull base are intact. The ventricles and sulci are within normal limits. There is no mass, hematoma, midline shift, or acute infarct. Impression: No acute intracranial abnormality. ACT 112: Negative or not required by law. The above report was generated using voice recognition software. It may contain grammatical, syntax or spelling errors. Electronically signed by: Angel Tee M.D. 10/28/2019 1:02 PM ECG Data Attestation: I personally reviewed and interpreted this ECG as follows: Indication: + chest pain Rate (beats per minute): 79 Rhythm: normal sinus ECG Intervals/blocks: + Normal QRS ECG Hunter: + Normal ECG ST segments: no ST depression and no ST elevation ECG Findings: + Other (Poor baseline); no PVCs Blood Pressure Blood Pressure Findings: Normal blood pressure Blood Pressure Disposition: further management by hospitalist Discharge Plan Visit Data Chief Complaint: Chest Pain Stated Complaint: CHEST PAIN ED Provider: Shaun Foley Discharge Problem: Left-sided chest pain, Right sided numbness, Elevated d-dimer Patient Disposition: Being Evaluated by Hospitalist Forms Stand Alone Forms: Call Back Authorization, [facility] Prescriptions Prescriptions: No Action albuterol sulfate 2.5 mg /3 mL (0.083 %) Solution For Nebulization 2.5 mg INHALATION Q4 PRN (Reason: Shortness Of Breath) RF: 0 atenolol 100 mg Tablet 50 mg PO HS RF: 0 baclofen 10 mg Tablet 10 mg PO TID PRN (Reason: Muscle Pain) RF: 0 omega-3 acid ethyl esters 1 gram capsule 1 cap PO BID RF: 0 methocarbamol 500 mg Tablet 500 mg PO TID PRN (Reason: Muscle Pain) RF: 0 cetirizine 10 mg Tablet 10 mg PO DAILY PRN (Reason: allergies) RF: 0 sucralfate [Carafate] 1 gram tablet 1 g PO ACHS RF: 0 ondansetron HCl [Zofran] 4 mg Tablet 4 mg PO TID PRN (Reason: Nausea) RF: 0 sertraline 100 mg Tablet 100 mg PO QAM RF: 0 melatonin 3 mg Tablet 3 mg PO HS PRN (Reason: Sleep) RF: 0 clopidogrel [Plavix] 75 mg Tablet 75 mg PO QAM RF: 0 risperidone 2 mg Tablet 2 mg PO BID RF: 0 magnesium oxide [MagOx] 400 mg (241.3 mg magnesium) tablet 400 mg PO QAM RF: 0 benzonatate 100 mg Capsule 100 mg PO TID PRN (Reason: Cough) RF: 0 lisinopril 10 mg Tablet 10 mg PO QAM RF: 0 gabapentin [Neurontin] 300 mg capsule 300 mg PO QID RF: 0 diclofenac sodium 50 mg Tablet,Delayed Release (Dr/Ec) 50 mg PO BID PRN (Reason: Pain) RF: 0 albuterol sulfate [Ventolin HFA] 90 mcg/actuation Hfa Aerosol Inhaler 2 puff INHALATION Q4 PRN (Reason: Shortness Of Breath Or Wheezing) RF: 0 hydroxyzine HCl 10 mg Tablet 30 - 40 mg PO HS PRN (Reason: Anxiety) RF: 0 dicyclomine 10 mg capsule 10 mg PO TID PRN (Reason: Pain) RF: 0 topiramate [Topamax] 50 mg Tablet 50 mg PO BID RF: 0 senna 8.6 mg Capsule 8.6 mg PO BID PRN (Reason: Constipation) RF: 0 diclofenac sodium [Voltaren] 1 % Gel 0 g TOPICAL Q6 PRN (Reason: Pain) RF: 0 trazodone 100 mg tablet 250 mg PO HS RF: 0 pantoprazole 40 mg Tablet,Delayed Release (Dr/Ec) 40 mg PO BID Qty: 60 RF: 1 Vitron-C 65 mg iron- 125 mg Tablet,Delayed Release (Dr/Ec) 1 tab PO BID RF: 0 Referrals Referrals: Eulalio Barry [Primary Care Provider] - The scribe's documentation has been prepared under my direction and personally reviewed by me in its entirety. I confirm that the note above accurately reflects all work, treatment, procedures, and medical decision making performed by me.
[2019-10-28] MEDS ORDERED: BACLOFEN 10 MG TAB PO PRN (17:10)
[2019-10-28] MEDS ORDERED: ALBUTEROL 0.083% NEBU SOLN 3 ML VIAL INH PRN (17:10)
[2019-10-28] MEDS ORDERED: ACETAMINOPHEN 325 MG TAB PO PRN (17:10)
[2019-10-28] MEDS ORDERED: DICYCLOMINE HCL 10 MG CAP PO PRN (17:10)
[2019-10-28] MEDS ORDERED: DICLOFENAC SOD 1% GEL 100 GM TUBE EXT PRN (17:10)
[2019-10-28] MEDS ORDERED: METHOCARBAMOL 500 MG TABLET PO PRN (17:10)
[2019-10-28] MEDS ORDERED: CETIRIZINE HCL 10 MG TABLET PO PRN (17:10)
[2019-10-28] MEDS ORDERED: hydrOXYzine HCl 10 MG TAB PO PRN (17:10)
[2019-10-28] MEDS ORDERED: ONDANSETRON INJ 2 MG/ML 2 ML VIAL IV PRN (17:10)
[2019-10-28] MEDS ORDERED: DICLOFENAC SODIUM 25 MG TABDR PO PRN (17:28)
[2019-10-28] MEDS ORDERED: SENNA 8.6 MG TAB PO PRN (17:36)
[2019-10-28] MEDS: GABAPENTIN 300 MG CAP PO SCH ×2 (18:54→21:16)
[2019-10-28] MEDS: SUCRALFATE 1 GM TAB PO SCH ×2 (18:54→21:16)
[2019-10-28] MEDS ORDERED: GADOBUTROL 65ML VIAL IV PRN (20:27)
[2019-10-28] MEDS ORDERED: NON-FORMULARY MEDICATION (Iron,Carbonyl-Vitamin C [Vitron-C] 1 TAB) PO SCH (21:00)
--- NOTE | 2019-10-28 21:06 | Magnetic Resonance Report ---
Brain MRI WITH AND WITHOUT CONTRAST HISTORY: Headache. TECHNIQUE: Multiplanar multisequence MRI of the brain was performed both before and after the intrave nous administration of contrast. COMPARISON STUDY: Head CT 10/28/2019. Brain MRI 09/14/2019. FINDINGS: There are no areas of restricted diffusion to suggest acute infarction. The midline structu res are intact. The paranasal sinuses are clear. The mastoid air cells are clear. The ventricles and sulci are within normal limits for age. There is no mass, hematoma, midline shift. The major vascular flow-voids at the skull base are well maintained. Postcontrast sequences show no areas of abnormal e nhancement. IMPRESSION: No acute intracranial abnormality. ACT 112: Negative or not required by law. Electronically signed by: Sebastian Patino M.D. 10/28/2019 9:05 PM
[2019-10-28] MEDS: TRAZODONE HCL 100 MG TAB PO SCH (21:17)
[2019-10-28] MEDS: risperiDONE 2 MG TABLET PO SCH (21:19)
[2019-10-28] MEDS: PANTOprazole 40 MG TAB PO SCH (21:20)
[2019-10-28] MEDS: TOPIRAMATE 50 MG TAB PO SCH (21:20)
[2019-10-29 06:31] LABS: Basophils # (auto) 0.01 K/uL (0-0.2); Basophils % (auto) 0.1 %; Hematocrit (blood only) 36.2 % (37-47); Hemoglobin 12.2 g/dL (12.0-16.0); Immature Granulocytes # (auto) 0.04 K/uL (0.00-0.02); Immature Granulocytes % (auto) 0.5 %; Lymphocytes # (auto) 2.17 K/uL (1.2-3.4); Lymphocytes % (auto) 29.1 %; Mean Corpuscular Hemoglobin 28.8 pg (25-34); Mean Corpuscular Hgb Conc 33.7 g/dL (32-36); Mean Corpuscular Volume 85.4 fL (80-100); Mean Platelet Volume 9.2 fL (7.4-10.4); Monocytes # (auto) 0.51 K/uL (0.11-0.59); Monocytes % (auto) 6.8 %; Neutrophils # (auto) 4.73 K/uL (1.4-6.5); Neutrophils % (auto) 63.5 %; Platelet Count 207 K/uL (130-400); RDW Coefficient of Variation 15.4 % (11.5-14.5); RDW Standard Deviation 47.7 fL (36.4-46.3); Red Blood Count 4.24 M/uL (4.2-5.4); White Blood Count 7.46 K/uL (4.8-10.8)
[2019-10-29 07:07] LABS: Creatinine Clr Calc Pharmacy 169.8 ml/min; Est GFR (African American) 106.3; Est GFR (Non-African American) 91.7; Potassium 3.5 mmol/L (3.5-5.1)
--- NOTE | 2019-10-29 07:43 | Electrocardiogram Report ---
Test Reason : Blood Pressure : / mmHG Vent. Rate : 079 BPM Atrial Rate : 079 BPM P-R Int : 132 ms QRS Dur : 090 ms QT Int : 392 ms P-R-T Axes : 052 002 018 degrees QTc Int : 449 ms Poor data quality, interpretation may be adversely affected Normal sinus rhythm Normal ECG When compared with ECG of 15-SEP-2019 15:10, ST now depressed in Inferior leads Confirmed by Justyn Hall ([id number]) on 10/29/2019 7:42:50 AM Referred By: Confirmed By:Maximo Hall
[2019-10-29] MEDS: TOPIRAMATE 50 MG TAB PO SCH ×2 (08:48→21:32)
[2019-10-29] MEDS: GABAPENTIN 300 MG CAP PO SCH ×4 (08:48→20:35)
[2019-10-29] MEDS: SERTRALINE HCL 100 MG TABLET PO SCH (08:48)
[2019-10-29] MEDS: PANTOprazole 40 MG TAB PO SCH ×2 (08:48→20:36)
[2019-10-29] MEDS: CLOPIDOGREL BISULFATE 75 MG TAB PO SCH (08:48)
[2019-10-29] MEDS: risperiDONE 2 MG TABLET PO SCH ×2 (08:48→20:37)
[2019-10-29] MEDS: SUCRALFATE 1 GM TAB PO SCH ×4 (08:49→20:34)
[2019-10-29] MEDS ORDERED: NYSTATIN POWDER 15GM BTL EXT PRN (08:51)
[2019-10-29] MEDS: OPTIRAY 320 125ml IV PRN (13:10)
--- NOTE | 2019-10-29 13:17 | CT Scan Report ---
CT angio chest PE protocol CT DOSE: 1176.40 mGy.cm HISTORY: Chest pain right sided chest pain, pleuritic; eval for PE TECHNIQUE: Multiaxial CT images of the chest were performed following the intravenous administration of contrast to evaluate the pulmonary arteries. Maximal intensity projection images were also obtaine d. A dose lowering technique was utilized adhering to the principles of ALARA. COMPARISON STUDY: None. FINDINGS: There is a normal caliber thoracic aorta with no evidence for dissection. There is no evide nce for pulmonary embolus. No pleural effusions. No pneumothorax. The liver and spleen are unremarkab le. No mediastinal or hilar lymphadenopathy. The central airways are patent. The lungs are clear. IMPRESSION: No evidence for pulmonary embolus. Lungs are clear. ACT 112: Negative or not required by law. The above report was generated using voice recognition software. It may contain grammatical, syntax or spelling errors. Electronically signed by: Angel Tee M.D. 10/29/2019 1:15 PM
[2019-10-29] MEDS: TRAZODONE HCL 100 MG TAB PO SCH (20:34)
--- NOTE | 2019-10-30 02:02 | Hospitalist Progress Note ---
Date of Service October 29, 2019 Assessment & Plan (1) Chest pain: Chest pain is right-sided, present for several days, coming/going, ?pleuritic. Troponin x 3 neg. EKGs wnl. telemetry normal. Do not suspect ischemic. CTA chest obtained - no PE. etiology? musculoskeletal? will cont to monitor for any worsening. if symptoms persist obtain echo although may be limited due to body habitus. (2) Right sided numbness: Ongoing. MRI brain neg for acute stroke or other pathology. Numbness is the ENTIRE right arm and leg. uncertain etiology. if this was cervical radiculopathy would suspect just the arm in the distribution of one of the nerve roots. cont to monitor. if it persists consider neuro consultation. cont asa/plavix. (3) Elevated d-dimer: in light of right-sided chest pain -- obtained chest cta -- negative for PE. (4) Morbid obesity: BMI 66 uncertain if pt would ever be gastric bypass candidate (5) TIA (transient ischemic attack): Report of prior TIA x 2 ? MRI confirmed stroke in past ? despite persistent right-sided numbness her MRI brain was wnl receiving b12 shots for b12 deficiency - doubt such contributing to numbness cervical spine issue? other? cont asa/plavix secondary prevention (6) Bipolar depression: Continue home medications, Sertraline, Risperdal, Topamax Trazodone for sleep Hydroxyzine PRN anxiety antipsychotic use may have caused extrapyramidal effects (7) Hypertension: Blood pressure stable/controlled this is despite holding her Atenolol and Lisinopril monitor (8) GERD (gastroesophageal reflux disease): Continue Protonix and Sucralfate (9) Anemia: stable CBC (10) Discharge planning issues: patient lives in [facility] she comes to [facility] for b12 injections?? will obtain PT/OT evals to determine if stable for d/c potential d/c on 10/30/2019 ? Subjective patient continues to have off/on right-sided chest discomfort. now stating it is pleuritic and that she feels short-winded. no left-sided chest pain. no cough. pain has been present for several days. also c/o right arm and right leg numbness. the numbness is the entire right arm/leg (both anterior and posterior portions). denies focal weakness. denies numbness of face. numbness is constant. denies neck pain. Review of Systems Constitutional: no fever, no chills, no fatigue and no anorexia Respiratory: no cough and no dyspnea Cardiovascular: as per Subjective / HPI and + dyspnea at rest; no orthopnea and no paroxysmal nocturnal dyspnea Gastrointestinal: no abdominal pain, no nausea and no vomiting Musculoskeletal: c/o right anterior thigh pain Physical Exam Constitutional: + morbidly obese; no acute distress and no altered mental status ENMT: external ear and nose normal, oropharynx normal Respiratory: normal respiratory effort, lungs clear to auscultation no respiratory distress Auscultation: no crackles and no wheezes Cardiovascular: Rate/Rhythm: regular rate and regular rhythm Heart Sounds: normal S1 and normal S2; no murmur Vessels: posterior tibial pulses present and dorsalis pedis pulses present; no JVD Extremities: no edema Gastrointestinal (Abdomen): normal bowel sounds, soft, nontender, no hepatosplenomegaly Skin: no rashes, warm and dry Neurologic: moves all extremities (strength 5/5 x 4 extremities ) Psychiatric: constant jaw/lip movements - extrapyramidal movements?? Results & Data Vital Signs (Past 12 Hours) Vital Signs Temp Pulse Pulse Resp BP BP Pulse Ox 10/29/19 23:11 83 10/29/19 22:38 37.1 C 85 21 110/69 94 10/29/19 19:32 36.6 C 87 20 106/72 94 10/29/19 19:21 36.6 C 64 21 163/63 H 98 10/29/19 16:00 72 10/29/19 15:20 36.7 C 80 21 98/65 L 96 Laboratory Results Laboratory Results - last 24 hr 10/29/19 10/29/19 10/29/19 06:00 06:00 14:35 WBC 7.46 RBC 4.24 Hgb 12.2 Hct 36.2 L MCV 85.4 MCH 28.8 MCHC 33.7 RDW Std Deviation 47.7 H RDW Coeff of Sylvia 15.4 H Plt Count 207 MPV 9.2 Immature Gran % (Auto) 0.5 Neut % (Auto) 63.5 Lymph % (Auto) 29.1 [place] % (Auto) 6.8 Eos % (Auto) 0.0 Baso % (Auto) 0.1 Immature Gran # (Auto) 0.04 H Neut # (Auto) 4.73 Lymph # (Auto) 2.17 [place] # (Auto) 0.51 Eos # (Auto) 0.00 Baso # (Auto) 0.01 Sodium 141 Potassium 3.5 Chloride 108 H Carbon Dioxide 26 Anion Gap 6.0 BUN 10 Creatinine 0.79 Est Cr Clr Drug Dosing 169.8 Est GFR ( Amer) 106.3 Est GFR (Non-Af Amer) 91.7 BUN/Creatinine Ratio 13.0 Glucose 112 H Calcium 9.0 Troponin I < 0.015 PG Care Time/CCT Total # of Minutes Spent Total Time Spent with Patient: Total time spent is greater than 50% in coordination of care (as documented) at patient's floor/unit and/or counseling patient: (1) Chest pain Chest pain type: other chest pain Qualified Code(s): R07.89 - Other chest pain (2) Hypertension Hypertension type: essential hypertension Qualified Code(s): I10 - Essential (primary) hypertension (3) GERD (gastroesophageal reflux disease) Esophagitis presence: with esophagitis Qualified Code(s): K21.0 - Gastro- esophageal reflux disease with esophagitis (4) Anemia Anemia type: unspecified type Qualified Code(s): D64.9 - Anemia, unspecified
[2019-10-30 07:37] LABS: BUN Creatinine Ratio 12.6 (10-20); Calcium 8.6 mg/dl (8.5-10.1); Creatinine Clr Calc Pharmacy 173.9 ml/min; Est GFR (African American) 109.6; Est GFR (Non-African American) 94.6; Potassium 3.3 mmol/L (3.5-5.1)
[2019-10-30] MEDS ORDERED: POTASSIUM CHLORIDE 20 MEQ TABCR PO STA (08:12)
[2019-10-30] MEDS: risperiDONE 2 MG TABLET PO SCH (09:48)
[2019-10-30] MEDS: CLOPIDOGREL BISULFATE 75 MG TAB PO SCH (09:49)
[2019-10-30] MEDS: GABAPENTIN 300 MG CAP PO SCH ×2 (09:49→12:44)
[2019-10-30] MEDS: TOPIRAMATE 50 MG TAB PO SCH (09:49)
[2019-10-30] MEDS: SERTRALINE HCL 100 MG TABLET PO SCH (09:49)
[2019-10-30] MEDS: PANTOprazole 40 MG TAB PO SCH (09:49)
[2019-10-30] MEDS: SUCRALFATE 1 GM TAB PO SCH ×2 (09:49→12:44)
--- NOTE | 2019-10-30 13:34 | Discharge Summary ---
Date of Service date of admission - October 28, 2019 date of discharge - October 30, 2019 Admission HPI Per Admitting Provider 44yo C female presenting with right sided CP x 2 days, non-exertional/non-pleuritic, radiation down right arm, stabbing in nature, 8/10 in severity. Also with dizziness and occasional SOB. No prior h/o CAD. While in the ER she developed right leg numbness and weakness. Mild INGRAM and blurry vision in the right eye No additional complaints at this time. Patient had been to the [facility] earlier in the day for a scheduled B12 injection. Principal Diagnosis chest pain, no evidence of ACS, no evidence of PE; etiology uncertain Discharge Exam Constitutional + morbidly obese; no acute distress and no altered mental status ENMT external ear and nose normal, oropharynx normal Respiratory normal respiratory effort, lungs clear to auscultation no respiratory distress Auscultation: no crackles and no wheezes Cardiovascular Rate/Rhythm: regular rate and regular rhythm Heart Sounds: normal S1 and normal S2; no murmur Vessels: posterior tibial pulses present and dorsalis pedis pulses present; no JVD Extremities: no edema Gastrointestinal (Abdomen) normal bowel sounds, soft, nontender, no hepatosplenomegaly Skin no rashes, warm and dry Neurologic moves all extremities (strength 5/5 x 4 extremities ) Psychiatric Orientation: alert and oriented x 3 Eye Contact: + poor eye contact Motor Behavior: + EPS (of lips/facial muscles) Affect: + flat affect Discharge Data Allergies Allergy/AdvReac Type Severity Reaction Status Date / Time aspirin Allergy Hives Verified 10/28/19 12:02 codeine Allergy Hives Verified 10/28/19 12:02 ketorolac [From Toradol] Allergy Hives Verified 10/28/19 12:02 latex Allergy Hives Verified 10/28/19 12:02 Penicillins Allergy Hives Verified 10/28/19 12:02 promethazine [From Phenergan] Allergy Hives Verified 10/28/19 12:02 tramadol Allergy Hives Verified 10/28/19 12:02 Consultations PT, OT Procedures Performed 1. CTA chest - no PE, no infiltrates. 2. echocardiogram - EF 55-60%; normal wall motion. Normal valve function. 3. CT head - negative for acute process. 4. MRI brain - negative for acute stroke or old stroke. No tumor, no atrophy. Hospital Course (1) Chest pain: Chest pain was right-sided, present for several days, coming/going, ?pleuritic. Troponin x 3 neg. EKGs wnl. telemetry was normal. CTA chest obtained - no PE. echo with preserved EF and normal wall motion. etiology? musculoskeletal? GI? other? Her pain ultimately resolved without any intervention. Again the exact etiology was not certain. To be complete - given that she does have CAD risk factors - would recommend outpatient nuclear stress test. PCP - please arrange outpatient nuclear stress test at time of hospital follow- up. (2) Right sided numbness: Patient complained of right arm/leg numbness for about 24 hours. This self-resolved without any intervention. MRI brain neg for acute stroke or other pathology. Uncertain etiology. If this was cervical radiculopathy would suspect just the arm in the distribution of one of the nerve roots. Certainly a migraine can cause numbness but she denied headache while hospitalized. She was continued on plavix for secondary prevention as she had had a stroke in the past. CTA head/neck to look at circulation were deferred as she had undergone both of these late in 2019. Echo was normal without thrombus. No ASD was seen but there was not enough resolution to rule out PFO. Telemetry was normal and without a.fib while hospitalized. I do not believe this was a TIA event. Again, however, the etiology was unclear. If patient has recurrent symptoms recommend outpatient neurology consultation. (3) Elevated d-dimer: in light of right-sided chest pain -- obtained chest cta -- negative for PE. (4) Morbid obesity: BMI 66 uncertain if pt would ever be gastric bypass candidate (5) TIA (transient ischemic attack): Report of prior TIA x 2 ? MRI confirmed stroke in past ? despite persistent right-sided numbness her MRI brain was wnl receiving b12 shots for b12 deficiency - doubt such contributing to numbness but not fully excluded cervical spine issue? other? cont plavix secondary prevention (6) Bipolar depression: Continue home medications, Sertraline, Risperdal, Topamax Trazodone for sleep Hydroxyzine PRN anxiety antipsychotic use likely has caused extrapyramidal effects seen on physical exam (7) Hypertension: Blood pressure stable/controlled Cont Atenolol and Lisinopril (8) GERD (gastroesophageal reflux disease): Continue Protonix and Sucralfate (9) Anemia: stable CBC Hb 12.2 while here patient receiving B12 injections at [facility] by history PCP - please consider managing B12 injections as this would prevent excessive travel from [place] to [place] for that procedure Total Time Total Time Spent Total Time Spent (In Minutes): 35 Total Time Includes: Examination of the Patient, Discharge Planning and Medication Reconciliation Discharge Plan Discharge Items Patient Disposition: Home - Self-Care Reason For Visit: Chest Pain, RIGHT SIDED TINGLING Discharge Diagnosis: 1. chest pain - no evidence of heart attack. All blood work for the heart was normal. Echocardiogram was normal. CAT scan of the lungs did NOT show blood clots or pneumonia. 2. right-sided numbness - uncertain cause. MRI brain did NOT show any stroke. Activity: Resume your previous activity Non-emergency contact: Primary Care Provider Call non-emergency contact if: you have any medication questions, your symptoms worsen and you have a fever Follow-up/Referrals: Eulalio Barry [Primary Care Provider] - (please see Dr Barry within 3-4 days ) Diet: Heart Healthy Diet Texture: Dental soft (bite-sized) Addtl Attending Provider Instructions: You were admitted for right-sided chest pain and right arm/leg numbness. These symptoms resolved without any intervention. The exact cause of your symptoms was not certain. Although all of your testing was normal (MRI brain, echocardiogram, blood work, etc) I would recommend the following - 1. please speak to Dr Barry about obtaining a NUCLEAR stress test back in your home town. This could potentially be a 1-day or 2-day stress test. A stress test tries to determine if your chest pains are coming from your heart. 2. please speak to Dr Barry about obtaining your B12 shots in his office in your hometown. This will save you lots of time by not having to travel to [place] for the shots. We have made no changes in your chronic medications. I have sent in a prescription to your pharmacy for nystatin (anti-yeast) powder to use as needed for yeast rash in the groin, under the breasts, etc. Follow-up - see Dr Barry this week if possible Return to any hospital if - * you are experiencing shortness of breath * you are having severe chest pains * you have any symptoms of a stroke (weakness in an arm or leg, numbness in an arm or leg, numbness or droopiness of your face, difficulty speaking or swallowing, etc) * you have fevers over 100.5 degrees * any other concerns Pending Studies at Discharge: No Stand-Alone Forms: Call Back Authorization, My [facility], Smoking Cessation Medications and DC Order Prescriptions: New nystatin 100,000 unit/gram powder 1 appln TOP TID PRN (Reason: rash under breasts, groin, etc.) Qty: 60 RF: 0 Continued albuterol sulfate 2.5 mg /3 mL (0.083 %) Solution For Nebulization 2.5 mg INHALATION Q4 PRN (Reason: Shortness Of Breath) RF: 0 atenolol 100 mg Tablet 50 mg PO HS RF: 0 baclofen 10 mg Tablet 10 mg PO TID PRN (Reason: Muscle Pain) RF: 0 omega-3 acid ethyl esters 1 gram capsule 1 cap PO BID RF: 0 methocarbamol 500 mg Tablet 500 mg PO TID PRN (Reason: Muscle Pain) RF: 0 cetirizine 10 mg Tablet 10 mg PO DAILY PRN (Reason: allergies) RF: 0 sucralfate [Carafate] 1 gram tablet 1 g PO ACHS RF: 0 ondansetron HCl [Zofran] 4 mg Tablet 4 mg PO TID PRN (Reason: Nausea) RF: 0 sertraline 100 mg Tablet 100 mg PO QAM RF: 0 melatonin 3 mg Tablet 3 mg PO HS PRN (Reason: Sleep) RF: 0 clopidogrel [Plavix] 75 mg Tablet 75 mg PO QAM RF: 0 risperidone 2 mg Tablet 2 mg PO BID RF: 0 magnesium oxide [MagOx] 400 mg (241.3 mg magnesium) tablet 400 mg PO QAM RF: 0 benzonatate 100 mg Capsule 100 mg PO TID PRN (Reason: Cough) RF: 0 lisinopril 10 mg Tablet 10 mg PO QAM RF: 0 gabapentin [Neurontin] 300 mg capsule 300 mg PO QID RF: 0 diclofenac sodium 50 mg Tablet,Delayed Release (Dr/Ec) 50 mg PO BID PRN (Reason: Pain) RF: 0 albuterol sulfate [Ventolin HFA] 90 mcg/actuation Hfa Aerosol Inhaler 2 puff INHALATION Q4 PRN (Reason: Shortness Of Breath Or Wheezing) RF: 0 hydroxyzine HCl 10 mg Tablet 30 - 40 mg PO HS PRN (Reason: Anxiety) RF: 0 dicyclomine 10 mg capsule 10 mg PO TID PRN (Reason: Pain) RF: 0 topiramate [Topamax] 50 mg Tablet 50 mg PO BID RF: 0 senna 8.6 mg Capsule 8.6 mg PO BID PRN (Reason: Constipation) RF: 0 diclofenac sodium [Voltaren] 1 % Gel 0 g TOPICAL Q6 PRN (Reason: Pain) RF: 0 trazodone 100 mg tablet 250 mg PO HS RF: 0 pantoprazole 40 mg Tablet,Delayed Release (Dr/Ec) 40 mg PO BID Qty: 60 RF: 1 Vitron-C 65 mg iron- 125 mg Tablet,Delayed Release (Dr/Ec) 1 tab PO BID RF: 0 Discharge Orders: Discharge Order (Routine); Ordered 10/30/19 Ordered By: Gilmar Vargas Admission Data Admit Date/Time: 10/28/19 15:21 Attending Provider: Gilmar Vargas Admit Provider: Vilma Borges Primary Care Provider: Eulalio Barry Other Providers: Vilma Borges Other Interventions: Discharge Summary Assessment (RN) Last Done: 10/30/19 15:09 DC Date/Time DO NOT enter until pt leaves facility: 10/30/19 17:29
== END 2019-10-30 17:29 | disposition home or self-care (01) ==
LOC: 2N 10:55 → ED 10:55 → SUATTDRO 15:21 → 2N 16:16